=== PATIENT | female | born 1985 | race Caucasian/White ===

== ENCOUNTER 2017-11-27 03:15 | Inpatient (IN) | payer OTHER ==
--- NOTE | 2017-11-27 04:04 | PDOC ---
History of Present Illness - General Chief Complaint: Back Pain Stated Complaint: PAIN Time Seen by Provider: 11/27/17 03:38 History Source: Patient Exam Limitations: No Limitations - History of Present Illness Travel History: No Initial Comments: 11/27/17 04:04 HISTORY OF PRESENT ILLNESS: 32-year-old woman with past medical history of asthma presents emergency Department with left lower quadrant pain radiating to the left flank for the past 36 hours. Patient states the pain came on suddenly and is been constant over this time. Patient states she took Tia-Acton with minimal relief of symptoms. Patient reports having a strange sensation when she voids. Patient also with intermittent nausea. Patient denies any constipation, diarrhea, rectal bleeding, vaginal discharge, vaginal bleeding, vomiting, dyspareunia. Patient states she had a formed brown bowel movement approximately 8:00 this evening. Patient reports last month she took plan B and lower cramping and vaginal bleeding afterwards. No recent travel or sick contacts. PAST MEDICAL HISTORY: asthma SURGICAL HISTORY: Denies ALLERGIES: No known drug allergies REVIEW OF SYSTEMS General/Constitutional: Denies fever or chills. Denies weakness, weight change. HEENT: Denies change in vision. Denies ear pain or discharge. Denies sore throat. Cardiovascular: Denies chest pain or shortness of breath. Respiratory: Denies cough, wheezing, or hemoptysis. Gastrointestinal: Denies vomiting, diarrhea or constipation. Denies rectal bleeding. +nausea. Genitourinary: +dysuria. Denies frequency, or change in urination. Musculoskeletal: Denies joint or muscle swelling or pain. Denies neck or back pain. Skin and breasts: Denies rash or easy bruising. Neurologic: Denies headache, vertigo, loss of consciousness, or loss of sensation. Psychiatric: Denies depression or anxiety. Endocrine: Denies increased thirst. Denies abnormal weight change. Hematologic/Lymphatic: Denies anemia, easy bleeding, or history of blood clots. Allergic/Immunologic: Denies hives or skin allergy. Denies latex allergy. PHYSICAL EXAM General Appearance: Well-appearing, appropriately dressed. No apparent distress , no intoxication. HEENT: EOMI, PERRLA, normal ENT inspection, normal voice, TMs normal, pharynx normal. No conjunctival pallor. No photophobia, scleral icterus. Neck: Supple. Trachea midline. No tenderness, rigidity, carotid bruit, stridor , lymphadenopathy, or thyromegaly. Respiratory/Chest: Lungs CTAB. No shortness of breath, chest tenderness, respiratory distress, accessory muscle use. No crackles, rales, rhonchi, stridor , wheezing, dullness Cardiovascular: RRR. S1, S2. No JVD, murmur, bradycardia, tachycardia. Vascular Pulses: Dorsalis-Pedis (R): 2+, Dorsalis-Pedis (L): 2+ Gastrointestinal/Abdominal: Normal bowel sounds. Abdomen soft, non-distended. LLQ tenderness. No rebound tenderness. No organomegaly, pulsatile mass, guarding , hernia, hepatomegaly, splenomegaly. Lymphatic: No adenopathy, tenderness. Musculoskeletal/Extremities: Normal inspection. FROM of all extremities, normal capillary refill. Pelvis Stable. Left CVA tenderness. No tenderness to extremities, pedal edema, swelling, erythema or deformity. Integumentary: Appropriate color, dry, warm. No cyanosis, erythema, jaundice or rash Neurologic: electrical sign wirer helper II-XII intact. Fully oriented, alert. Appropriate mood/affect. Motor strength 5/5. No appreciable EOM palsy, facial droop or sensory deficit. Past History - Past Medical History Allergies/Adverse Reactions: Allergies Allergy/AdvReac Type Severity Reaction Status Date / Time No Known Allergies Allergy Verified 11/27/17 03:49 Home Medications: Ambulatory Orders No Home Medications 0 dose .ROUTE UTDICT 12/28/11 Asthma: Yes - Surgical History Appendectomy: Yes - Reproductive History (#): 3 Para: 3 - Immunization History Immunization Up to Date: Yes - Suicide/Smoking/Psychosocial Hx Smoking Status: No Smoking History: Former smoker Have you smoked in the past 12 months: No Number of Cigarettes Smoked Daily: 0 Information on smoking cessation initiated: No Hx Alcohol Use: No Drug/Substance Use Hx: No Substance Use Type: None *Physical Exam - Vital Signs Last Vital Signs Temp Pulse Resp BP Pulse Ox 98.3 F 80 20 139/84 98 11/27/17 03:20 11/27/17 03:20 11/27/17 03:20 11/27/17 03:20 11/27/17 03:20 ED Treatment Course - LABORATORY CBC & Chemistry Diagram: 11/27/17 04:15 11/27/17 04:15 Medical Decision Making - Medical Decision Making 11/27/17 04:16 A/P: 32-year-old woman with recent hours of left lower quadrant pain radiating to the left flank Normoactive bowel sounds Left lower quadrant tenderness No guarding present Left CVA tenderness present Labs, urine, Zofran, analgesia after urine is resulted. Spiral CT *DC/Admit/Observation/Transfer Diagnosis at time of Disposition: Kidney stone, Obstruction of left ureteropelvic junction (UPJ) due to stone, Hydronephrosis of left kidney - Discharge Dispostion Condition at time of disposition: Guarded - Referrals - Patient Instructions - Post Discharge Activity
[2017-11-27] MEDS ORDERED: ONDANSETRON 4 MG/2 ML VIAL IVPUSH ONE (04:05)
[2017-11-27] MEDS ORDERED: SODIUM CHLORIDE 1,000 ML IV STA (04:05)
[2017-11-27 04:37] LABS: BASO % 0.5 % (0-2.0); EOS % 1.7 % (0-4.5); HEMATOCRIT 38.6 % (32.4-45.2); MCH 29.5 pg (25.7-33.7); MCHC 33.8 g/dl (32.0-36.0); MEAN CELL VOLUME 87.4 fl (80-96); MEAN PLT VOLUME 9.6 fl (7.5-11.1); MONO % 5.5 % (3.8-10.2); NEUT % 77.3 % (42.8-82.8); PLATELET COUNT 234 K/MM3 (134-434); RBC 4.42 M/mm3 (3.60-5.2); RDW 12.9 % (11.6-15.6); WHITE BLOOD COUNT 9.2 K/mm3 (4.0-10.0)
[2017-11-27 04:47] LABS: URINE APPEARANCE CLEAR; URINE BILIRUBIN NEGATIVE (<2.0 mg/dL); URINE COLOR STRAW; URINE GLUCOSE (UA) NEGATIVE (NEGATIVE); URINE KETONE NEGATIVE (NEGATIVE); URINE LEUK ESTERASE NEGATIVE (NEGATIVE); URINE NITRITE NEGATIVE (NEGATIVE); URINE PROTEIN NEGATIVE (NEGATIVE); URINE UROBILINOGEN NEGATIVE mg/dL (0.2-1.0)
[2017-11-27 04:50] LABS: EPI CELLS RARE /HPF (FEW); URINE MUCUS RARE
[2017-11-27 05:00] LABS: ALBUMIN 4.1 g/dl (3.4-5.0); ALK PHOS 91 U/L (45-117); ANION GAP 3 MMOL/L (8-16); BILIRUBIN,TOTAL 1.1 mg/dL (0.2-1); BLOOD UREA NITROGEN 18 mg/dL (7-18); CALCIUM 8.9 mg/dL (8.5-10.1); CHLORIDE 107 mmol/L (98-107); CO2 27 mmol/L (21-32); GLUCOSE,RANDOM 94 mg/dL (74-106); POTASSIUM 3.9 mmol/L (3.5-5.1); SGOT/AST 14 U/L (15-37); SGPT/ALT 23 U/L (13-61); SODIUM 136 mmol/L (136-145); TOT PROT 7.7 g/dl (6.4-8.2)
[2017-11-27] MEDS ORDERED: KETOROLAC TROMETHAMINE 30 MG/1 ML VIAL IVPUSH ONE (05:10)
[2017-11-27] MEDS ORDERED: KETOROLAC TROMETHAMINE 30 MG/1 ML VIAL ONE (05:11)
[2017-11-27] MEDS ORDERED: ONDANSETRON 4 MG/2 ML VIAL ONE (05:11)
--- NOTE | 2017-11-27 10:47 | PDOC ---
ED Treatment Course - LABORATORY CBC & Chemistry Diagram: 11/27/17 04:15 11/27/17 04:15 - ADDITIONAL ORDERS Additional order review: Laboratory Results 11/27/17 11/27/17 11/27/17 04:30 04:30 04:15 Sodium 136 Potassium 3.9 Chloride 107 Carbon Dioxide 27 Anion Gap 3 L BUN 18 Creatinine 1.0 Creat Clearance w eGFR > 60 Random Glucose 94 Calcium 8.9 Total Bilirubin 1.1 H AST 14 L ALT 23 Alkaline Phosphatase 91 Total Protein 7.7 Albumin 4.1 Urine Color Straw Urine Appearance Clear Urine pH 7.0 Ur Specific [place] 1.011 Urine Protein Negative Urine Glucose (UA) Negative Urine Ketones Negative Urine Blood 1+ H Urine Nitrite Negative Urine Bilirubin Negative Urine Urobilinogen Negative Ur Leukocyte Esterase Negative Urine WBC (Auto) 0-2 Urine RBC (Auto) Ur Epithelial Cells Rare Urine Mucus Rare Urine HCG, Qual Negative 11/27/17 04:15 RBC 4.42 MCV 87.4 MCHC 33.8 RDW 12.9 MPV 9.6 Neutrophils % 77.3 D Lymphocytes % 15.0 D Monocytes % 5.5 Eosinophils % 1.7 Basophils % 0.5 - Medications Given in the ED: ED Medications Discontinued Medications Generic Name Dose Route Start Last Admin Trade Name Freq PRN Reason Stop Dose Admin Sodium Chloride 1,000 mls @ 1,000 mls/hr 11/27/17 04:05 11/27/17 05:21 Normal Saline - IV 11/27/17 05:04 1,000 mls/hr ASDIR STA Administration Ketorolac Tromethamine 30 mg 11/27/17 05:10 11/27/17 05:22 Toradol Injection - IVPUSH 11/27/17 05:11 30 mg ONCE ONE Administration Ondansetron HCl 4 mg 11/27/17 04:05 11/27/17 05:22 Zofran Injection IVPUSH 11/27/17 04:06 4 mg ONCE ONE Administration <Ayah Cornell - Last Filed: 11/27/17 11:59> - LABORATORY CBC & Chemistry Diagram: 11/27/17 04:15 11/27/17 04:15 - ADDITIONAL ORDERS Additional order review: Laboratory Results 11/27/17 11/27/17 11/27/17 04:30 04:30 04:15 Sodium 136 Potassium 3.9 Chloride 107 Carbon Dioxide 27 Anion Gap 3 L BUN 18 Creatinine 1.0 Creat Clearance w eGFR > 60 Random Glucose 94 Calcium 8.9 Total Bilirubin 1.1 H AST 14 L ALT 23 Alkaline Phosphatase 91 Total Protein 7.7 Albumin 4.1 Urine Color Straw Urine Appearance Clear Urine pH 7.0 Ur Specific [place] 1.011 Urine Protein Negative Urine Glucose (UA) Negative Urine Ketones Negative Urine Blood 1+ H Urine Nitrite Negative Urine Bilirubin Negative Urine Urobilinogen Negative Ur Leukocyte Esterase Negative Urine WBC (Auto) 0-2 Urine RBC (Auto) Ur Epithelial Cells Rare Urine Mucus Rare Urine HCG, Qual Negative 11/27/17 04:15 RBC 4.42 MCV 87.4 MCHC 33.8 RDW 12.9 MPV 9.6 Neutrophils % 77.3 D Lymphocytes % 15.0 D Monocytes % 5.5 Eosinophils % 1.7 Basophils % 0.5 - Medications Given in the ED: ED Medications Discontinued Medications Generic Name Dose Route Start Last Admin Trade Name Freq PRN Reason Stop Dose Admin Sodium Chloride 1,000 mls @ 1,000 mls/hr 11/27/17 04:05 11/27/17 05:21 Normal Saline - IV 11/27/17 05:04 1,000 mls/hr ASDIR STA Administration Ketorolac Tromethamine 30 mg 11/27/17 05:10 11/27/17 05:22 Toradol Injection - IVPUSH 11/27/17 05:11 30 mg ONCE ONE Administration Ondansetron HCl 4 mg 11/27/17 04:05 11/27/17 05:22 Zofran Injection IVPUSH 11/27/17 04:06 4 mg ONCE ONE Administration Oxycodone/Acetaminophen 2 combo 11/27/17 11:24 11/27/17 11:26 Percocet 5/325 - PO 11/27/17 11:25 2 combo ONCE ONE Administration <Lynne Persaud - Last Filed: 11/27/17 12:04> Progress Note - Progress Note Progress Note: Patient will be discharged on FLomax, motrin, percocet, zofran PRN for nausea. Pt in NAD, tolerating PO 12:00p Pt is now in a lot of pain, percocet given, she is still in pain, will consider admission. Dr. Persaud spoke to hospitalist. Will page Dr. Perez to keep him updated <Ayah Cornell - Last Filed: 11/27/17 11:59> Medical Decision Making - Medical Decision Making 11/27/17 12:04 The patient was seen and evaluated in conjunction with midlevel provider under my direct supervision, ancillary studies were reviewed. I agree with the plan as outlined by CHUY Cornell. see attending note <Lynne Persaud - Last Filed: 11/27/17 12:04> *DC/Admit/Observation/Transfer <Ayah Cornell - Last Filed: 11/27/17 11:59> - Discharge Dispostion Decision to Admit order: Yes Decision to Admit order Date/Time: Decision to Admit Order Category Date Time Status Decision to Admit to Hospital Routine Admission 11/27/17 11:38 Active <Lynne Persaud - Last Filed: 11/27/17 12:04> Diagnosis at time of Disposition: Kidney stone, Obstruction of left ureteropelvic junction (UPJ) due to stone, Hydronephrosis of left kidney - Discharge Dispostion Condition at time of disposition: Guarded - Referrals Referrals: Silviano Duarte MD [Staff Physician] - Juanito Mcneal MD [Staff Physician] - - Patient Instructions
--- NOTE | 2017-11-27 11:27 | PDOC ---
*Physical Exam - Vital Signs Last Vital Signs Temp Pulse Resp BP Pulse Ox 98.3 F 70 16 148/57 L 97 11/27/17 10:54 11/27/17 10:54 11/27/17 10:54 11/27/17 10:54 11/27/17 10:54 ED Treatment Course - LABORATORY CBC & Chemistry Diagram: 11/27/17 04:15 11/27/17 04:15 - ADDITIONAL ORDERS Additional order review: Laboratory Results 11/27/17 11/27/17 11/27/17 04:30 04:30 04:15 Sodium 136 Potassium 3.9 Chloride 107 Carbon Dioxide 27 Anion Gap 3 L BUN 18 Creatinine 1.0 Creat Clearance w eGFR > 60 Random Glucose 94 Calcium 8.9 Total Bilirubin 1.1 H AST 14 L ALT 23 Alkaline Phosphatase 91 Total Protein 7.7 Albumin 4.1 Urine Color Straw Urine Appearance Clear Urine pH 7.0 Ur Specific [place] 1.011 Urine Protein Negative Urine Glucose (UA) Negative Urine Ketones Negative Urine Blood 1+ H Urine Nitrite Negative Urine Bilirubin Negative Urine Urobilinogen Negative Ur Leukocyte Esterase Negative Urine WBC (Auto) 0-2 Urine RBC (Auto) Ur Epithelial Cells Rare Urine Mucus Rare Urine HCG, Qual Negative 11/27/17 04:15 RBC 4.42 MCV 87.4 MCHC 33.8 RDW 12.9 MPV 9.6 Neutrophils % 77.3 D Lymphocytes % 15.0 D Monocytes % 5.5 Eosinophils % 1.7 Basophils % 0.5 - Medications Given in the ED: ED Medications Discontinued Medications Generic Name Dose Route Start Last Admin Trade Name Freq PRN Reason Stop Dose Admin Sodium Chloride 1,000 mls @ 1,000 mls/hr 11/27/17 04:05 11/27/17 05:21 Normal Saline - IV 11/27/17 05:04 1,000 mls/hr ASDIR STA Administration Ketorolac Tromethamine 30 mg 11/27/17 05:10 11/27/17 05:22 Toradol Injection - IVPUSH 11/27/17 05:11 30 mg ONCE ONE Administration Ondansetron HCl 4 mg 11/27/17 04:05 11/27/17 05:22 Zofran Injection IVPUSH 11/27/17 04:06 4 mg ONCE ONE Administration Medical Decision Making - Medical Decision Making 11/27/17 11:25 The patient was seen and evaluated in conjunction with midlevel provider under my direct supervision, ancillary studies were reviewed. I agree with the plan as outlined by CHUY Cornell was signed out from Dr. Washington/CHUY Burgos overnight pending CT isak 32 YOF with h/o asthma p/w LLQ pain radiating to left flank x 3 days. no fever or vomiting. +nausea. no urinary sx. vitals reviewed, wnl. no fever labs and lytes wnl, Cr and UA normal, no infection. +blood present, c/w stone passing. CT [place] with obstruction distal UPJ stone measuring ~8mm, with associated hydro. pain initially controlled with nsaid. given IVF however on reassessment 1120am: still in 10/10 pain, given trial of PO percocet , and reassess. on reassessment 12pm: still in pain despite PO percocet, tender in left flank. + symptomatic, additional analgesia w/Toradol, morphine and IVF, PO flomax for large stone not candidate to go home, intractable pain with obstructing large UPJ stone that has <50% of passing. pt does feel more comfortable with observation stay, updated with results and plan. CHUY called consulted Dr. Flanagan, trust operations assistant urologist, discussed case, will reupdate with admission, as pt not candidate to go home with intractable pain and large prox stone. dispo: Admit for obstructing UPJ stone, pain control, urology consultation and medical management for now. Discussed results and management plan with pt and family member at bedside, agree with impression and plan 11/27/17 11:52 *DC/Admit/Observation/Transfer Diagnosis at time of Disposition: Kidney stone, Obstruction of left ureteropelvic junction (UPJ) due to stone, Hydronephrosis of left kidney - Discharge Dispostion Condition at time of disposition: Guarded Decision to Admit order: Yes Decision to Admit order Date/Time: 11/27/17 11:58 Decision to Admit Order Category Date Time Status Decision to Admit to Hospital Routine Admission 11/27/17 11:38 Active - Referrals Referrals: Juanito Mcneal MD [Staff Physician] - Silviano Duarte MD [Staff Physician] - - Patient Instructions - Post Discharge Activity
[2017-11-27] MEDS ORDERED: morphine CARPU-JECT 4 MG/1 ML DISP.SYRIN IVPUSH ONE (11:50)
[2017-11-27] MEDS ORDERED: KETOROLAC TROMETHAMINE 15 MG/ML VIAL IVPUSH ONE (11:50)
[2017-11-27] MEDS ORDERED: SODIUM CHLORIDE 0.9% 500 ML INFUS.BAG IV ONE (11:51)
[2017-11-27] MEDS ORDERED: TAMSULOSIN HCL 0.4 MG CAP PO ONE (11:58)
--- NOTE | 2017-11-27 12:05 | PDOC ---
ED Treatment Course - LABORATORY CBC & Chemistry Diagram: 11/27/17 04:15 11/27/17 04:15 - ADDITIONAL ORDERS Additional order review: Laboratory Results 11/27/17 11/27/17 11/27/17 04:30 04:30 04:15 Sodium 136 Potassium 3.9 Chloride 107 Carbon Dioxide 27 Anion Gap 3 L BUN 18 Creatinine 1.0 Creat Clearance w eGFR > 60 Random Glucose 94 Calcium 8.9 Total Bilirubin 1.1 H AST 14 L ALT 23 Alkaline Phosphatase 91 Total Protein 7.7 Albumin 4.1 Urine Color Straw Urine Appearance Clear Urine pH 7.0 Ur Specific [place] 1.011 Urine Protein Negative Urine Glucose (UA) Negative Urine Ketones Negative Urine Blood 1+ H Urine Nitrite Negative Urine Bilirubin Negative Urine Urobilinogen Negative Ur Leukocyte Esterase Negative Urine WBC (Auto) 0-2 Urine RBC (Auto) Ur Epithelial Cells Rare Urine Mucus Rare Urine HCG, Qual Negative 11/27/17 04:15 RBC 4.42 MCV 87.4 MCHC 33.8 RDW 12.9 MPV 9.6 Neutrophils % 77.3 D Lymphocytes % 15.0 D Monocytes % 5.5 Eosinophils % 1.7 Basophils % 0.5 - Medications Given in the ED: ED Medications Discontinued Medications Generic Name Dose Route Start Last Admin Trade Name Freq PRN Reason Stop Dose Admin Sodium Chloride 1,000 mls @ 1,000 mls/hr 11/27/17 04:05 11/27/17 05:21 Normal Saline - IV 11/27/17 05:04 1,000 mls/hr ASDIR STA Administration Ketorolac Tromethamine 30 mg 11/27/17 05:10 11/27/17 05:22 Toradol Injection - IVPUSH 11/27/17 05:11 30 mg ONCE ONE Administration Ondansetron HCl 4 mg 11/27/17 04:05 11/27/17 05:22 Zofran Injection IVPUSH 11/27/17 04:06 4 mg ONCE ONE Administration Oxycodone/Acetaminophen 2 combo 11/27/17 11:24 11/27/17 11:26 Percocet 5/325 - PO 11/27/17 11:25 2 combo ONCE ONE Administration *DC/Admit/Observation/Transfer Diagnosis at time of Disposition: Kidney stone, Obstruction of left ureteropelvic junction (UPJ) due to stone, Hydronephrosis of left kidney - Discharge Dispostion Condition at time of disposition: Guarded Decision to Admit order: Yes - Referrals Referrals: Juanito Mcneal MD [Staff Physician] - Silviano Duarte MD [Staff Physician] - - Patient Instructions - Post Discharge Activity
[2017-11-27] MEDS ORDERED: KETOROLAC TROMETHAMINE 15 MG/ML VIAL ONE (12:19)
[2017-11-27] MEDS ORDERED: TAMSULOSIN HCL 0.4 MG CAP ONE (12:19)
[2017-11-27] MEDS ORDERED: morphine SULFATE 4 MG/ML VIAL ONE (12:19)
[2017-11-27] MEDS ORDERED: ONDANSETRON 4 MG/2 ML VIAL IVPUSH PRN (13:09)
--- NOTE | 2017-11-27 13:09 | HP ---
CHIEF COMPLAINT: LLQ and left CVA pain PCP: NONE HISTORY OF PRESENT ILLNESS: 32 yr old woman with hx of controlled asthma presented to ED early this morning with intractable llq and left CVA pain radiating between her left lower abdomen and left CVA, 10/10 intensity, intermittent, worse when drinking water and leaning forward. pain initially started in her llq on Wednesday and was intermittent, continued to increaese in frequency with worsening intensity starting Wednesday. this morning the pain was worse than ever associated with hematuria and chills. denies previous hx of nephrolithiasis. took plan B on nov 11 and was on her menses until wednesday. ER course was notable for: (1) pain control (2) consult Dr. Orozco (3) Recent Travel: none PAST MEDICAL HISTORY: hx of pyelonephritis 1 episode during her in 2004 asthma, controlled - no hx of intubations/ED visits/hospitalizations PAST SURGICAL HISTORY: x3 2004, 2005 and 2007 appendectomy >10yrs ago Social History: Smoking:never Alcohol:socially Drugs: denies Family History: father with hx of CT at age 55 and HTN, maternal grandmother wth DM. no family hx of renal stones. Allergies No Known Allergies Allergy (Verified 11/27/17 03:49) HOME MEDICATIONS: Home Medications Medication Instructions Recorded No Home Medications 0 dose .ROUTE UTDICT 12/28/11 REVIEW OF SYSTEMS CONSTITUTIONAL: Present: chills, Absent: fever, diaphoresis, generalized weakness, malaise, loss of appetite, weight change HEENT: Present: intermittent blurry vision with pain Absent: rhinorrhea, nasal congestion, throat pain, throat swelling, difficulty swallowing, mouth swelling, CARDIOVASCULAR: Absent: chest pain, syncope, palpitations, irregular heart rate, lightheadedness , peripheral edema RESPIRATORY: Absent: cough, shortness of breath, dyspnea with exertion, GASTROINTESTINAL: Present: abdominal pain, constipation, Absent:abdominal distension, nausea, vomiting, diarrhea, melena, hematochezia GENITOURINARY: Present: dysuria, hematuria, flank pain, Absent: frequency, urgency, hesitancy, genital pain MUSCULOSKELETAL: Absent: myalgia, arthralgia, joint swelling, back pain, neck pain NEUROLOGIC: Absent: headache, dizziness, unsteady gait, seizure, PHYSICAL EXAMINATION Vital Signs - 24 hr 11/27/17 11/27/1711/27/18 03:20 05:14 07:04 Temperature 98.3 F Pulse Rate 80 Pulse Rate [ 75 Left Radial] Respiratory 20 16 Rate Blood Pressure 139/84 Blood Pressure 154/94 [Left Arm] O2 Sat by Pulse 98 98 94 L Oximetry (%) 11/27/17 11/27/17 11/27/17 10:54 11:40 12:11 Temperature 98.3 F 98.3 F Pulse Rate Pulse Rate [ 70 78 Left Radial] Respiratory 16 16 16 Rate Blood Pressure Blood Pressure 148/57 L 158/96 [Left Arm] O2 Sat by Pulse 97 100 100 Oximetry (%) GENERAL: Awake, alert, in no acute distress. HEAD: Normal with no signs of trauma. EYES: Pupils equal, round and reactive to light, extraocular movements intact, sclera anicteric, conjunctiva clear. No lid lag. EARS, NOSE, THROAT: oropharynx clear without exudates. Moist mucous membranes. NECK: Normal range of motion, supple without lymphadenopathy, JVD, or masses. LUNGS: Breath sounds equal, clear to auscultation bilaterally. No wheezes, and no crackles. No accessory muscle use. HEART: Regular rate and rhythm, normal S1 and S2 without murmur, rub or gallop. ABDOMEN:obses, Soft, nontender, not distended, normoactive bowel sounds, no guarding, no rebound, no masses. MUSCULOSKELETAL: Normal range of motion at all joints. No bony deformities or tenderness. No CVA tenderness. UPPER EXTREMITIES: 2+ radial pulses, warm, well-perfused. No cyanosis. No clubbing. No peripheral edema. LOWER EXTREMITIES: 2+ DP pulses, warm, well-perfused. No calf tenderness. No peripheral edema. NEUROLOGICAL: Cranial nerves II-XII intact. Normal speech. facial symmetry PSYCHIATRIC: Cooperative. Good eye contact. Appropriate mood and affect. SKIN: Warm, dry, normal turgor, no rashes or lesions noted, normal capillary refill. Laboratory Results - last 24 hr 11/27/17 11/27/17 11/27/17 04:15 04:15 04:30 WBC 9.2 RBC 4.42 Hgb 13.0 Hct 38.6 MCV 87.4 MCH 29.5 MCHC 33.8 RDW 12.9 Plt Count 234 MPV 9.6 Absolute Neuts (auto) 7.1 Neutrophils % 77.3 D Lymphocytes % 15.0 D Monocytes % 5.5 Eosinophils % 1.7 Basophils % 0.5 Nucleated RBC % 0 Sodium 136 Potassium 3.9 Chloride 107 Carbon Dioxide 27 Anion Gap 3 L BUN 18 Creatinine 1.0 Creat Clearance w eGFR > 60 Random Glucose 94 Calcium 8.9 Total Bilirubin 1.1 H AST 14 L ALT 23 Alkaline Phosphatase 91 Total Protein 7.7 Albumin 4.1 Urine Color Straw Urine Appearance Clear Urine pH 7.0 Ur Specific [place] 1.011 Urine Protein Negative Urine Glucose (UA) Negative Urine Ketones Negative Urine Blood 1+ H Urine Nitrite Negative Urine Bilirubin Negative Urine Urobilinogen Negative Ur Leukocyte Esterase Negative Urine WBC (Auto) 0-2 Urine RBC (Auto) Ur Epithelial Cells Rare Urine Mucus Rare Urine HCG, Qual 11/27/17 04:30 WBC RBC Hgb Hct MCV MCH MCHC RDW Plt Count MPV Absolute Neuts (auto) Neutrophils % Lymphocytes % Monocytes % Eosinophils % Basophils % Nucleated RBC % Sodium Potassium Chloride Carbon Dioxide Anion Gap BUN Creatinine Creat Clearance w eGFR Random Glucose Calcium Total Bilirubin AST ALT Alkaline Phosphatase Total Protein Albumin Urine Color Urine Appearance Urine pH Ur Specific [place] Urine Protein Urine Glucose (UA) Urine Ketones Urine Blood Urine Nitrite Urine Bilirubin Urine Urobilinogen Ur Leukocyte Esterase Urine WBC (Auto) Urine RBC (Auto) Ur Epithelial Cells Urine Mucus Urine HCG, Qual Negative ASSESSMENT/PLAN: 32 yr old woman with controlled asthma presented to ED with intractable left flank pain radiating to her left lower abdomen for past few days found to have obstructing left proximal ureter with mild left renal hydronephrosis. #Obstructing renal calculi in the proximal left UPJ with mild left hydronephrosis - urology consult Dr. Orozco for evaluation/stent placemen - IVF @ 125cc/hr of Ns - flomax 0.4mg daily - strain urine - NPO at midnight for any possible intervention in the morning - pain control with toradol, escalate if needed - urine culture pending #fatty liver w/ elevated bilirubin seen on CT scan - recommend outpatient follow -up with PCP/GI #Obesity, BMI 40.7 #DVT: lovenox 40sq #Diet: regular for dinner #Activity as tolerated # declined HIV testing, orally designated her as her HCP, full code Visit type - Emergency Visit Emergency Visit: Yes ED Registration Date: 11/27/17 Care time: The patient presented to the Emergency Department on the above date and was hospitalized for further evaluation of their emergent condition. - New Patient This patient is new to me today: Yes Date on this admission: 11/27/17 - Critical Care Critical Care patient: No
[2017-11-27] MEDS: SODIUM CHLORIDE 1,000 ML IV SCH ×2 (14:50→23:25)
--- NOTE | 2017-11-27 15:09 | PN ---
Teaching Attending Note Name of Resident: Kale Vaughn ATTENDING PHYSICIAN STATEMENT I saw and evaluated the patient. I reviewed the resident's note and discussed the case with the resident. I agree with the resident's findings and plan as documented. SUBJECTIVE: This is a 32 year old woman with a history of asthma who comes to the ED complaining of left flank and LLQ abdominal pain x 2 days. She has nausea , painful urination, but no fever, chills, vomiting, diarrhea, constipation, rectal bleeding, melena, hematuria. OBJECTIVE: Vital Signs Period Temp Pulse Resp BP Sys/Mojica Pulse Ox Last 24 Hr 98.3 F-98.3 F 70-80 16-20 139-158/57-96 94-100 HEART: S1S2, RRR LUNGS: Clear ABDOMEN: Obese, soft, non-distended, (+) LLQ tenderness, normal BS, (+) left CVA tenderness EXTREMITIES: No edema Laboratory Tests 11/27/17 11/27/17 11/27/17 04:15 04:15 04:30 WBC 9.2 RBC 4.42 Hgb 13.0 Hct 38.6 MCV 87.4 MCH 29.5 MCHC 33.8 RDW 12.9 Plt Count 234 MPV 9.6 Absolute Neuts (auto) 7.1 Neutrophils % 77.3 D Lymphocytes % 15.0 D Monocytes % 5.5 Eosinophils % 1.7 Basophils % 0.5 Nucleated RBC % 0 Sodium 136 Potassium 3.9 Chloride 107 Carbon Dioxide 27 Anion Gap 3 L BUN 18 Creatinine 1.0 Creat Clearance w eGFR > 60 Random Glucose 94 Calcium 8.9 Total Bilirubin 1.1 H AST 14 L ALT 23 Alkaline Phosphatase 91 Total Protein 7.7 Albumin 4.1 Urine Color Straw Urine Appearance Clear Urine pH 7.0 Ur Specific [place] 1.011 Urine Protein Negative Urine Glucose (UA) Negative Urine Ketones Negative Urine Blood 1+ H Urine Nitrite Negative Urine Bilirubin Negative Urine Urobilinogen Negative Ur Leukocyte Esterase Negative Urine WBC (Auto) 0-2 Urine RBC (Auto) Ur Epithelial Cells Rare Urine Mucus Rare Urine HCG, Qual 11/27/17 04:30 WBC RBC Hgb Hct MCV MCH MCHC RDW Plt Count MPV Absolute Neuts (auto) Neutrophils % Lymphocytes % Monocytes % Eosinophils % Basophils % Nucleated RBC % Sodium Potassium Chloride Carbon Dioxide Anion Gap BUN Creatinine Creat Clearance w eGFR Random Glucose Calcium Total Bilirubin AST ALT Alkaline Phosphatase Total Protein Albumin Urine Color Urine Appearance Urine pH Ur Specific [place] Urine Protein Urine Glucose (UA) Urine Ketones Urine Blood Urine Nitrite Urine Bilirubin Urine Urobilinogen Ur Leukocyte Esterase Urine WBC (Auto) Urine RBC (Auto) Ur Epithelial Cells Urine Mucus Urine HCG, Qual Negative Home Medications Medication Instructions Recorded No Home Medications 0 dose .ROUTE UTDICT 12/28/11 ASSESSMENT AND PLAN: This is a 32 year old woman with a history of asthma who presented to the ED with left flank pain, LLQ abdominal pain, nausea, and dysuria for 2 days. 1. Obstructing 7.5 mm left ureteral stone with mild left hydronephrosis - IV fluid - Flomax - Toradol as needed for pain - Zofran as needed for nause - Urology consult 2. Asthma - Stable 3. Morbid obesity with BMI 40.7
[2017-11-27] MEDS ORDERED: KETOROLAC TROMETHAMINE 15 MG/ML VIAL IVPUSH PRN (15:57)
[2017-11-27] MEDS ORDERED: ENOXAPARIN NA (PORCINE) 40 MG/0.4 ML DISP.SYRIN SQ SCH (18:00)
[2017-11-27] MEDS ORDERED: ENOXAPARIN NA (PORCINE) 60 MG/0.6 ML DISP.SYRIN SQ ONE (18:01)
[2017-11-28] MEDS ORDERED: TAMSULOSIN HCL 0.4 MG CAP PO ONE (06:00)
[2017-11-28] MEDS: SODIUM CHLORIDE 1,000 ML IV SCH ×3 (06:40→18:43)
[2017-11-28] MEDS ORDERED: MIDAZOLAM HCL 2 MG/2 ML SINGLE DOSE VIAL ONE (08:12)
[2017-11-28] MEDS ORDERED: LIDOCAINE HCL/PF 2% SDV 5ML VIAL ONE (08:13)
[2017-11-28] MEDS ORDERED: SODIUM CHLORIDE 0.9% P/F 10 ML VIAL IJ ONE (08:13)
[2017-11-28] MEDS ORDERED: LEVOFLOXACIN IVPB ONE (08:13)
[2017-11-28] MEDS ORDERED: METOPROLOL TARTRATE 5 MG/5 ML VIAL ONE (08:13)
[2017-11-28] MEDS ORDERED: PROPOFOL 20 ML ONE ×2 (08:14→09:25)
[2017-11-28] MEDS ORDERED: DEXAMETHASONE SOD PHOSPHATE 4 MG/1 ML VIAL ONE (08:15)
[2017-11-28] MEDS ORDERED: KETOROLAC TROMETHAMINE 30 MG/1 ML VIAL ONE (08:15)
[2017-11-28] MEDS ORDERED: SUCCINYLCHOLINE CHLORIDE 200 MG/10 ML VIAL ONE (08:17)
[2017-11-28] MEDS ORDERED: oxyCODONE HCL 5 MG TABLET PO PRN ×2 (08:34)
[2017-11-28] MEDS ORDERED: ONDANSETRON 4 MG/2 ML VIAL IVPUSH PRN ×3 (08:34→09:42)
[2017-11-28] MEDS ORDERED: LACTATED RINGERS SOLUTION 1,000 ML IV SCH ×2 (08:45→09:42)
--- NOTE | 2017-11-28 09:17 | CON.GU ---
Consult - History of Present Illness History of Present Illness: 32 yo female with acute onset of left renal colic secondary to an 8mm LPU stone. No fever/chills. No prior h/o nephrolithiaisis. Pt does have a h/o pyelonephritis - Past Medical History ...LMP: 06/26/13 ...: No - Alcohol/Substance Use Hx Alcohol Use: No - Smoking History Smoking history: Former smoker Have you smoked in the past 12 months: No Aproximately how many cigarettes per day: 0 Home Medications - Allergies Allergies/Adverse Reactions: Allergies Allergy/AdvReac Type Severity Reaction Status Date / Time No Known Allergies Allergy Verified 11/27/17 03:49 - Home Medications Home Medications: Ambulatory Orders No Home Medications 0 dose .ROUTE UTDICT 12/28/11 Review of Systems - Review of Systems Genitourinary: reports: Flank Pain Physical Exam- Vital Signs: Vital Signs Temperature 98.3 F 11/28/17 05:47 Pulse Rate 77 11/28/17 05:47 Respiratory Rate 18 11/28/17 05:47 Blood Pressure 140/78 11/28/17 05:47 O2 Sat by Pulse Oximetry (%) 99 11/28/17 00:00 Renal/: Yes: CVA Tenderness - Left Labs: CBC, BMP 11/27/17 04:15 11/27/17 04:15 Imaging - Results Cat Scan: Image Reviewed Problem List - Problems (1) Obstruction of left ureteropelvic junction (UPJ) due to stone Assessment/Plan: in light of large stone size, will plan for cysto/left stent placement today. Will need lithotripsy electively Code(s): N20.1 - CALCULUS OF URETER
--- NOTE | 2017-11-28 09:41 | OP ---
Operative Note - Note: Operative Date: 11/28/17 Pre-Operative Diagnosis: LPU stone Operation: cyato/retro/stent placement Post-Operative Diagnosis: Same as Pre-op Surgeon: Silviano Duarte Anesthesia: General Estimated Blood Loss (mls): 0 Operative Report Dictated: Yes
[2017-11-28] MEDS: ENOXAPARIN NA (PORCINE) 40 MG/0.4 ML DISP.SYRIN SQ SCH (12:16)
[2017-11-28] MEDS: oxyCODONE HCL 5 MG TABLET PO PRN ×3 (12:16→22:52)
--- NOTE | 2017-11-28 12:48 | OP ---
DATE OF OPERATION: 11/28/2017 PREOPERATIVE DIAGNOSIS: Obstructing left proximal ureteral stone. POSTOPERATIVE DIAGNOSIS: Obstructing left proximal ureteral stone. PROCEDURE: Cystoscopy, retrograde pyelogram, left ureteral stent placement. SURGEON: Romeo Zuleta MD INDICATION: The patient is a 32-year-old female with an obstructing 8-mm left proximal ureteral stone. She is taken to the OR for a cystoscopy, ureteral stent placement. Risks, benefits, alternatives discussed. After informed consent was obtained, the patient was taken to the OR and placed supine on the OR table. After cardiac monitoring was administered and general anesthesia established, she was prepped and draped in dorsal lithotomy position. The rigid cystoscope was inserted into the urethra without difficulty and the bladder was visualized. Attention was turned to the left ureteral orifice. This was intubated with a renal catheter, contrast was injected for retrograde pyelogram with hydronephrosis noted to the level of the proximal ureter, just past the UPJ, where the stone was seen. A guidewire was advanced beyond the stone and, over a guidewire, a 7-Slovak 24-cm double-pigtail stent was then advanced in a monorail fashion. Fluoroscopy confirmed the stent to be in good position and the cystoscope was then removed. The patient was then awoken from anesthesia and transferred to the recovery room in stable condition. There were no complications. ESTIMATED BLOOD LOSS: Zero. ROMEO ZULETA M.D. [id number]
--- NOTE | 2017-11-28 13:13 | PN ---
Physical Exam: SUBJECTIVE: Patient seen and examined. She is still having left flank and abdominal pain but it is less severe. OBJECTIVE: Vital Signs Period Temp Pulse Resp BP Sys/Mojica Pulse Ox Last 24 Hr 98 F-98.9 F 73-99 16-20 125-154/78-89 97-100 GENERAL: The patient is awake, alert, and fully oriented, in no acute distress. LUNGS: Breath sounds equal, clear to auscultation bilaterally, no wheezes, no crackles, no accessory muscle use. HEART: Regular rate and rhythm, S1, S2 without murmur, rub or gallop. ABDOMEN: Obese, soft, (+) mild LLQ tenderness, nondistended, normoactive bowel sounds, no guarding, no rebound, no hepatosplenomegaly, no masses. EXTREMITIES: 2+ pulses, warm, well-perfused, no edema. Active Medications Generic Name Dose Route Start Last Admin Trade Name Freq PRN Reason Stop Dose Admin Enoxaparin Sodium 40 mg 11/28/17 10:00 11/28/17 12:16 Lovenox - SQ 40 mg DAILY TALON Administration Sodium Chloride 1,000 mls @ 125 mls/hr 11/28/17 09:42 11/28/17 10:45 Normal Saline - IV 0 mls ASDIR TALON Administration Ketorolac Tromethamine 15 mg 11/28/17 09:42 Toradol Injection - IVPUSH 12/02/17 15:56 Q6H PRN PAIN LEVEL 6-10 Ondansetron HCl 4 mg 11/28/17 09:42 Zofran Injection IVPUSH Q6H PRN NAUSEA Oxycodone HCl 5 mg 11/28/17 09:42 Roxicodone - PO Q4H PRN PAIN LEVEL 1-5 Oxycodone HCl 10 mg 11/28/17 09:42 11/28/17 12:16 Roxicodone - PO 10 mg Q4H PRN Administration PAIN LEVEL 6-10 ASSESSMENT/PLAN: This is a 32 year old woman with a history of asthma who presented to the ED with left flank pain, LLQ abdominal pain, nausea, and dysuria for 2 days. 1. Obstructing 7.5 mm left ureteral stone with mild left hydronephrosis - s/p cystoscopy, retrograde pyelogram, left ureteral stent placement today - Continue IV fluid, pain control 2. Asthma - Stable 3. Morbid obesity with BMI 45.9 Visit type - Emergency Visit Emergency Visit: Yes ED Registration Date: 11/27/17 Care time: The patient presented to the Emergency Department on the above date and was hospitalized for further evaluation of their emergent condition. - New Patient This patient is new to me today: No - Critical Care Critical Care patient: No - Discharge Referral Referred to [facility] No
[2017-11-28] MEDS: KETOROLAC TROMETHAMINE 15 MG/ML VIAL IVPUSH PRN (18:47)
[2017-11-29] MEDS: SODIUM CHLORIDE 1,000 ML IV SCH ×3 (01:59→12:10)
[2017-11-29] MEDS: oxyCODONE HCL 5 MG TABLET PO PRN ×2 (06:04→10:26)
[2017-11-29] MEDS: KETOROLAC TROMETHAMINE 15 MG/ML VIAL IVPUSH PRN (13:02)
[2017-11-29] MEDS: ENOXAPARIN NA (PORCINE) 40 MG/0.4 ML DISP.SYRIN SQ SCH (13:04)
--- NOTE | 2017-11-29 13:20 | PN ---
Physical Exam: SUBJECTIVE: Patient seen and examined. She continues to complain of left abdominal/flank pain. OBJECTIVE: Vital Signs Period Temp Pulse Resp BP Sys/Mojica Pulse Ox Last 24 Hr 97.6 F-98.3 F 69-84 16-20 134-141/72-81 96 GENERAL: The patient is awake, alert, and fully oriented, in no acute distress. LUNGS: Breath sounds equal, clear to auscultation bilaterally, no wheezes, no crackles, no accessory muscle use. HEART: Regular rate and rhythm, S1, S2 without murmur, rub or gallop. ABDOMEN: Obese, soft, (+) mild LLQ tenderness, nondistended, normoactive bowel sounds, no guarding, no rebound, no hepatosplenomegaly, no masses. (-) CVA tenderness. EXTREMITIES: 2+ pulses, warm, well-perfused, no edema. Active Medications Generic Name Dose Route Start Last Admin Trade Name Freq PRN Reason Stop Dose Admin Enoxaparin Sodium 40 mg 11/28/17 10:00 11/29/17 13:04 Lovenox - SQ 40 mg DAILY TALON Administration Sodium Chloride 1,000 mls @ 125 mls/hr 11/28/17 09:42 11/29/17 12:10 Normal Saline - IV 125 mls/hr ASDIR TALON Administration Ketorolac Tromethamine 15 mg 11/28/17 09:42 11/29/17 13:02 Toradol Injection - IVPUSH 12/02/17 15:56 15 mg Q6H PRN Administration PAIN LEVEL 6-10 Ondansetron HCl 4 mg 11/28/17 09:42 Zofran Injection IVPUSH Q6H PRN NAUSEA Oxycodone HCl 5 mg 11/28/17 09:42 11/28/17 22:52 Roxicodone - PO 5 mg Q4H PRN Administration PAIN LEVEL 1-5 Oxycodone HCl 10 mg 11/28/17 09:42 11/29/17 10:26 Roxicodone - PO 10 mg Q4H PRN Administration PAIN LEVEL 6-10 ASSESSMENT/PLAN: This is a 32 year old woman with a history of asthma who presented to the ED with left flank pain, LLQ abdominal pain, nausea, and dysuria for 2 days. 1. Obstructing 7.5 mm left ureteral stone with mild left hydronephrosis - s/p cystoscopy, retrograde pyelogram, left ureteral stent placement 11/28 - Continue IV fluid, pain control - Urology follow up 2. Asthma - Stable 3. Morbid obesity with BMI 45.9 Visit type - Emergency Visit Emergency Visit: Yes ED Registration Date: 11/27/17 Care time: The patient presented to the Emergency Department on the above date and was hospitalized for further evaluation of their emergent condition. - New Patient This patient is new to me today: No - Critical Care Critical Care patient: No - Discharge Referral Referred to [facility] No
--- NOTE | 2017-11-29 13:21 | PN ---
Progress Note (short form) - Note Progress Note: Anesthesia post op note, POD#1. S/p Cysto, left retrograde pyelogram and left ureter stent. under GA. VSS. No apparent post anesthesia complications. Signed off.
[2017-11-30] MEDS: oxyCODONE HCL 5 MG TABLET PO PRN (05:03)
[2017-11-30] MEDS: ENOXAPARIN NA (PORCINE) 40 MG/0.4 ML DISP.SYRIN SQ SCH (09:31)
[2017-11-30 09:57] VITALS: BP 134/77; PULSE 73; TEMP 98.3
[2017-11-30] MEDS: SODIUM CHLORIDE 1,000 ML IV SCH (10:00)
[2017-11-30 12:11] VITALS: BMI 45.8
[2017-11-30] MEDS ORDERED: POLYETHYLENE GLYCOL 3350 119 GM BTL PO ONE (12:38)
--- NOTE | 2017-11-30 12:48 | DS ---
Physical Exam: SUBJECTIVE: Patient seen and examined OBJECTIVE: Vital Signs Period Temp Pulse Resp BP Sys/Mojica Pulse Ox Last 24 Hr 97.4 F-98.5 F 67-75 20-20 131-154/75-97 95 PHYSICAL EXAM GENERAL: The patient is awake, alert, and fully oriented, in no acute distress. HEAD: Normal with no signs of trauma. EYES: PERRL, extraocular movements intact, sclera anicteric, conjunctiva clear. ENT: Ears normal, nares patent, oropharynx clear without exudates, moist mucous membranes. NECK: Trachea midline, full range of motion, supple. LUNGS: Breath sounds equal, clear to auscultation bilaterally, no wheezes, no crackles, no accessory muscle use. HEART: Regular rate and rhythm, S1, S2 without murmur, rub or gallop. ABDOMEN: Soft, nontender, nondistended, normoactive bowel sounds, no guarding, no rebound, no hepatosplenomegaly, no masses. EXTREMITIES: 2+ pulses, warm, well-perfused, no edema. NEUROLOGICAL: Cranial nerves II through XII grossly intact. Normal speech, gait not observed. PSYCH: Normal mood, normal affect. SKIN: Warm, dry, normal turgor, no rashes or lesions noted. LABS HOSPITAL COURSE: Date of Admission:11/27/17 Date of Discharge: 11/30/17 Discharge Summary Reason For Visit: CALCULUS OF KIDNEY Current Active Problems Hydronephrosis of left kidney (Acute) Obstruction of left ureteropelvic junction (UPJ) due to stone (Acute) Asthma (Chronic) Morbid obesity with BMI of 45.0-49.9, adult (Chronic) Condition: Stable - Instructions Diet, Activity, Other Instructions: You were admitted to [facility] on 11/27 with left sided abdominal and flank pain. You were found to have a 7.5 mm stone obstructing the left ureter. You were treated with IV fluid, Flomax, and Toradol and oxycodone for pain. You were seen by a urologist, Dr. Duarte. On 11/28, you had a cystoscopy with left ureteral stent placement. You are being discharged on 11/30. Please continue to strain your urine. A prescription for oxycodone for pain has been sent to [facility]. While taking pain medications, you should take Colace (docusate) 300 mg at bedtime to prevent constipation, and you may take Miralax 17 g daily if needed for constipation. These are available over the counter. You may resume your usual diet and activity. You should schedule an appointment with Dr. Duarte and at the [facility] [place] [place] [facility] in 1 week. Referrals: Juanito Mcneal MD [Staff Physician] - 1 Week Silviano Duarte MD [Staff Physician] - 1 Week Disposition: HOME - Home Medications Comprehensive Discharge Medication List: Ambulatory Orders Docusate Sodium [Colace -] 3 cap PO HS #60 capsule 11/30/17 Polyethylene Glycol 3350 [Miralax (For Daily Use) -] 17 gm PO DAILY PRN #1 bottle 11/30/17 oxyCODONE HCL [Roxicodone -] 1 tab PO Q4H PRN #20 tablet MDD 6 tabs 11/30/17 - Discharge Referral Referred to [facility] No
== END 2017-11-30 14:14 | disposition home or self-care (01) | DRG 465 ==
LOC: JER 03:15 → JERBED 11:38 → OBSVTOIN 17:46 → J5S 20:53
PROVIDERS: ADMIT Internal Medicine; ATTEND Internal Medicine
PROC: 0T778DZ Dilation of Left Ureter with Intraluminal Device, Via Natural or Artificial Opening Endoscopic (ICD-10-PCS; principal; 2017-11-28 08:30)
PROC: BT1FZZZ Fluoroscopy of Left Kidney, Ureter and Bladder (ICD-10-PCS; 2017-11-28 08:30)
DX: N13.2 Hydronephrosis with renal and ureteral calculous obstruction (principal); J45.909 Unspecified asthma, uncomplicated; K76.0 Fatty (change of) liver, not elsewhere classified; E66.01 Morbid (severe) obesity due to excess calories; Z68.41 Body mass index [BMI] 40.0-44.9, adult; Z87.891 Personal history of nicotine dependence; R31.9 Hematuria, unspecified
CPT/HCPCS: 36415; 74176; 76000-TC-FY; 80053; 81003; 81015; 84703; 85025; 87086; 94760; 99285-25; G0378; J7030

== ENCOUNTER 2017-12-07 06:23 | Day surgery (SDC) | payer OTHER ==
[2017-12-06 10:16] VITALS: BMI 44.2
[2017-12-07] MEDS ORDERED: SUCCINYLCHOLINE CHLORIDE 200 MG/10 ML VIAL ONE (07:13)
[2017-12-07] MEDS ORDERED: MIDAZOLAM HCL 2 MG/2 ML SINGLE DOSE VIAL ONE (07:13)
[2017-12-07] MEDS ORDERED: PROPOFOL 20 ML ONE (07:13)
[2017-12-07] MEDS ORDERED: LIDOCAINE HCL/PF 2% SDV 5ML VIAL ONE (07:53)
[2017-12-07] MEDS ORDERED: IOHEXOL 300 MG/ML INFUS..BTL IJ ONE (08:05)
[2017-12-07] MEDS ORDERED: FUROSEMIDE 40 MG/4 ML INJECTABLE VIAL ONE (08:13)
[2017-12-07] MEDS ORDERED: DEXAMETHASONE SOD PHOSPHATE 4 MG/1 ML VIAL ONE (08:18)
[2017-12-07] MEDS ORDERED: oxyCODONE HCL 5 MG TABLET PO PRN ×2 (08:36→11:03)
--- NOTE | 2017-12-07 08:38 | OP ---
Operative Note - Note: Operative Date: 12/07/17 Pre-Operative Diagnosis: LPU stone Operation: laser litho/left ureteroscopy Findings: Left kid stone Surgeon: Silviano Duarte Anesthesia: General Specimens Removed: srtone fragisrael Estimated Blood Loss (mls): 0 Operative Report Dictated: Yes
[2017-12-07] MEDS ORDERED: ELECTROLYTE-148 SOLN 1,000 ML IV SCH (08:45)
--- NOTE | 2017-12-07 09:01 | OP ---
DATE OF OPERATION: 12/07/2017 PREOPERATIVE DIAGNOSIS: Left ureteropelvic junction stone. POSTOPERATIVE DIAGNOSIS: Left kidney stone. PROCEDURE: Cystoscopy, ureteroscopy, laser lithotripsy, stone basketing and stent placement. SURGEON: Romeo Zuleta MD INDICATION: Patient is a 32-year-old female status post left ureteral stent placement for an obstructing left UPJ stone approximately a week ago. Was taken to the OR today for ureteroscopy and laser lithotripsy. Risks, benefits and alternatives were discussed at length. After informed consent obtained patient taken to the OR, placed supine on the table. After cardiac monitoring administered and general anesthesia established she was prepped and draped in the dorsal supine position. The 22 sheath cystoscope was introduced into the urethra without difficulty and into the bladder. No tumors or stones were noted in the bladder. The left ureteral stent was seen emanating from the left ureteral orifice. A guidewire was advanced alongside this stent into the left renal pelvis. Then using a grasper the existing stent was removed and a guidewire was passed through the stent as a safety wire and confirmed with fluoroscopy to be in the left renal pelvis. Over 1 of the wires a flexible ureteroscope was advanced. The entire ureter was inspected and no stone was noted in the ureter. The kidney was then inspected and there was approximately a 6-mm stone in the lower pole of the left kidney corresponding to the stone that was present in the left proximal ureter preoperatively. The stone was pulverized to fine dust and 1- to 2-mm fragments with a 200-micron laser fiber. Two of these fragments were removed with the stone basket and sent to Pathology for analysis. Repeat ureteroscopy revealed no evidence of any other stone fragments. The ureteroscope was then removed and a 7-Liberian, 24-cm double-pigtail stent was then advanced in a monorail fashion. Fluoroscopy confirmed this to be in good position. Patient awoke from anesthesia and transferred to recovery in stable condition. There were no complications. Estimated blood loss was minimal. ROMEO ZULETA M.D. [id number]
[2017-12-07] MEDS ORDERED: ONDANSETRON 4 MG/2 ML VIAL IVPUSH PRN (11:03)
[2017-12-07 11:15] VITALS: BP 146/99; PULSE 84; TEMP 98.2
[2017-12-07] MEDS ORDERED: LACTATED RINGERS SOLUTION 1,000 ML IV SCH (11:15)
--- NOTE | 2017-12-08 14:53 | PATH ---
Surgical Pathology Report Patient Name: SUSAN MCINTYRE Med. Rec. #: [id number] /Age/Gender: 1985 (Age: 32) / F Account: [id number] Location: [facility] Taken: 12/07/2017 Received: 12/07/2017 Reported: 12/08/2017 Physicians: Silviano Duarte M.D. Specimen(s) Received A: REMOVED STENT LEFT SIDE B: LEFT KIDNEY CALCULI Clinical History Stone kidney left Final Diagnosis A. STENT, LEFT, REMOVAL: URETERAL STENT. MACROSCOPIC DIAGNOSIS. B. KIDNEY STONE, LASER LITHOTRIPSY: RENAL CALCULI. MACROSCOPIC DIAGNOSIS. Electronically Signed Tammi Caraballo M.D. Gross Description A. Received fresh labeled "removed stent left side," is a 36 cm in length blue-green, coiled portion of tubing, consistent with a ureteral stent. No soft tissue is present. No sections are submitted, gross only. B. Received fresh labeled "left kidney stone," is a 0.4 cm in greatest dimension mesa, irregular calculus which is sent for chemical analysis. DL/12/07/2017 saudi/12/07/2017
== END 2017-12-07 11:15 | disposition home or self-care (01) ==
LOC: JASU-SURG 06:23
PROVIDERS: ATTEND Urology
PROC: 0TF78ZZ Fragmentation in Left Ureter, Via Natural or Artificial Opening Endoscopic (ICD-10-PCS; principal; 2017-12-07 07:30)
PROC: 0T778DZ Dilation of Left Ureter with Intraluminal Device, Via Natural or Artificial Opening Endoscopic (ICD-10-PCS; 2017-12-07 07:30)
DX: N20.1 Calculus of ureter (principal)
CPT/HCPCS: 36415; 82360; 84703; 88300-TC; 94760

== ENCOUNTER 2021-09-18 13:55 | Emergency (ER) | payer OTHER ==
[2021-09-18 14:10] VITALS: BP 143/82; PULSE 83; RESP 18; TEMP 98.3; BMI 40.7
[2021-09-18] MEDS ORDERED: ACETAMINOPHEN 1000 MG/100 ML BAG IVPB ONE (16:20)
[2021-09-18] MEDS ORDERED: SODIUM CHLORIDE 1,000 ML IV STA (16:20)
[2021-09-18] MEDS ORDERED: ACETAMINOPHEN INJECTION 100 ML IVPB ONE (16:57)
[2021-09-18 17:58] LABS: BASO % 0.8 % (0-2.0); HEMATOCRIT 40.2 % (32.4-45.2); HEMOGLOBIN 13.4 GM/dL (10.7-15.3); LYMPH % 20.1 % (8-40); MCH 29.8 pg (25.7-33.7); MCHC 33.3 g/dl (32.0-36.0); MEAN CELL VOLUME 89.5 fl (80-96); MONO % 5.6 % (3.8-10.2); NEUT % 69.5 % (42.8-82.8); PLATELET COUNT 335 10^3/uL (134-434); RBC 4.49 M/mm3 (3.60-5.2); RDW 13.5 % (11.6-15.6); WHITE BLOOD COUNT 8.1 K/mm3 (4.0-10.0)
[2021-09-18 18:05] LABS: HCG,QUALITATIVE URINE Positive
[2021-09-18 18:06] LABS: EPI CELLS 16 /uL (0-25.1); HYALINE CASTS 1 /uL (0-3.1); PH,URINE 6.5 (5.0-8.0); URINE APPEARANCE CLEAR; URINE BACTERIA 48 /uL (0-1359); URINE BILIRUBIN NEGATIVE (NEGATIVE); URINE COLOR YELLOW; URINE GLUCOSE (UA) NEGATIVE (NEGATIVE); URINE KETONE TRACE (NEGATIVE); URINE LEUK ESTERASE NEGATIVE (NEGATIVE); URINE NITRITE NEGATIVE (NEGATIVE); URINE PROTEIN TRACE (NEGATIVE); URINE RBC 228 /uL (0-23.9); URINE WBC 7 /uL (0-25.8)
[2021-09-18 18:13] LABS: CHLORIDE 106 mmol/L (98-107); SODIUM 138 mmol/L (136-145)
[2021-09-18 18:15] LABS: ALBUMIN 3.7 g/dl (3.4-5.0); BLOOD UREA NITROGEN 15.8 mg/dL (7-18); CO2 25 mmol/L (21-32); GLUCOSE,RANDOM 83 mg/dL (74-106)
[2021-09-18 18:18] LABS: SGOT/AST 64 U/L (15-37); SGPT/ALT 28 U/L (13-61)
[2021-09-18 18:19] LABS: CREATININE 0.9 mg/dL (0.55-1.3)
[2021-09-18 18:20] LABS: BILIRUBIN,TOTAL 1.3 mg/dL (0.2-1)
[2021-09-18 18:21] LABS: ALK PHOS 88 U/L (45-117)
[2021-09-18 19:00] LABS: ANION GAP 7 MMOL/L (8-16)
[2021-09-18] MEDS ORDERED: SODIUM CHLORIDE 0.9% 500 ML INFUS.BAG IV ONE (19:59)
[2021-09-18] MEDS ORDERED: morphine CARPU-JECT 4 MG/1 ML DISP.SYRIN IVPUSH ONE (20:00)
[2021-09-18] MEDS ORDERED: morphine SULFATE 4 MG/ML VIAL ONE (20:04)
== END 2021-09-18 23:05 | disposition home or self-care (01) ==
LOC: JER 13:55
PROC: 3E033GC Introduction of Other Therapeutic Substance into Peripheral Vein, Percutaneous Approach (ICD-10-PCS; principal; 2021-09-18)
DX: O20.9 Hemorrhage in early pregnancy, unspecified (principal); Z3A.01 Less than 8 weeks gestation of pregnancy
CPT/HCPCS: 36415; 76775-TC; 76817-TC; 76856-TC; 80053; 81003; 84702; 84703; 85025; 87086; 93005; 93010; 99285-25

== ENCOUNTER 2022-01-18 18:54 | Emergency (ER) | payer OTHER ==
[2022-01-18 20:02] VITALS: BP 163/67; PULSE 80; RESP 18; TEMP 99.6; BMI 38.9
[2022-01-18] MEDS ORDERED: ACETAMINOPHEN 1000 MG/100 ML BAG IVPB ONE ×2 (20:53→21:07)
[2022-01-18] MEDS ORDERED: ACETAMINOPHEN INJECTION 100 ML IVPB ONE (21:09)
[2022-01-18 21:35] LABS: HEMATOCRIT 39.3 % (32.4-45.2); HEMOGLOBIN 12.9 GM/dL (10.7-15.3); MCH 29.2 pg (25.7-33.7); MCHC 32.7 g/dl (32.0-36.0); MEAN CELL VOLUME 89.2 fl (80-96); MEAN PLT VOLUME 9.9 fl (7.5-11.1); PLATELET COUNT 235 10^3/uL (134-434); RDW 13.9 % (11.6-15.6); WHITE BLOOD COUNT 8.3 K/mm3 (4.0-10.0)
[2022-01-18 21:36] LABS: URINE APPEARANCE CLOUDY; URINE BILIRUBIN NEGATIVE (NEGATIVE); URINE COLOR YELLOW; URINE GLUCOSE (UA) NEGATIVE (NEGATIVE); URINE KETONE NEGATIVE (NEGATIVE); URINE LEUK ESTERASE NEGATIVE (NEGATIVE); URINE NITRITE NEGATIVE (NEGATIVE); URINE PROTEIN TRACE (NEGATIVE); URINE UROBILINOGEN 0.2 mg/dL (0.2-1.0)
[2022-01-18 21:59] LABS: CALCIUM 9.1 mg/dL (8.5-10.1)
[2022-01-18 22:00] LABS: ALBUMIN 3.7 g/dl (3.4-5.0); BLOOD UREA NITROGEN 13.5 mg/dL (7-18)
[2022-01-18 22:02] LABS: CREATININE 0.8 mg/dL (0.55-1.3); PHOSPHOROUS 3.7 mg/dL (2.5-4.9)
[2022-01-18 22:04] LABS: BILIRUBIN,TOTAL 0.9 mg/dL (0.2-1); TOT PROT 7.1 g/dl (6.4-8.2)
[2022-01-19] MEDS ORDERED: KETOROLAC TROMETHAMINE 15 MG/ML VIAL IVPUSH ONE (00:37)
[2022-01-19] MEDS ORDERED: KETOROLAC TROMETHAMINE 15 MG/ML VIAL ONE (00:37)
== END 2022-01-19 00:46 | disposition home or self-care (01) ==
LOC: JER 18:54
PROC: 3E033NZ Introduction of Analgesics, Hypnotics, Sedatives into Peripheral Vein, Percutaneous Approach (ICD-10-PCS; principal; 2022-01-18)
PROC: 3E033GC Introduction of Other Therapeutic Substance into Peripheral Vein, Percutaneous Approach (ICD-10-PCS; 2022-01-18)
PROC: 3E0333Z Introduction of Anti-inflammatory into Peripheral Vein, Percutaneous Approach (ICD-10-PCS; 2022-01-19)
DX: R10.9 Unspecified abdominal pain (principal)
CPT/HCPCS: 36415; 76775-TC; 76830-TC; 80053; 81003; 83690; 83735; 84100; 84702; 84703; 85027; 87086; 93005; 93010; 99284-25

== ENCOUNTER 2022-04-17 07:12 | Emergency (ER) | payer OTHER ==
[2022-04-17 07:35] VITALS: BP 138/81; PULSE 94; RESP 18; TEMP 98.7; BMI 46.9
[2022-04-17] MEDS ORDERED: ACETAMINOPHEN 500 MG TABLET (FP) PO ONE (08:11)
[2022-04-17] MEDS ORDERED: ACETAMINOPHEN 500 MG TABLET (FP) ONE (08:12)
[2022-04-17 10:18] LABS: EPI CELLS >36 /uL (0-25.1); HYALINE CASTS 5 /uL (0-3.1); URINE APPEARANCE CLOUDY; URINE BACTERIA 385 /uL (0-1359); URINE BILIRUBIN NEGATIVE (NEGATIVE); URINE COLOR DK YELLOW; URINE GLUCOSE (UA) NEGATIVE (NEGATIVE); URINE KETONE TRACE (NEGATIVE); URINE LEUK ESTERASE 1+ (NEGATIVE); URINE NITRITE NEGATIVE (NEGATIVE); URINE PROTEIN 1+ (NEGATIVE); URINE RBC 20 /uL (0-23.9); URINE WBC 65 /uL (0-25.8)
[2022-04-17 10:37] LABS: URINE CRYSTALS NEGATIVE /hpf
== END 2022-04-17 10:39 | disposition home or self-care (01) ==
LOC: JER 07:12 → JERFT 07:12
DX: O23.592 Infection of other part of genital tract in pregnancy, second trimester (principal); B37.31 Acute candidiasis of vulva and vagina; O23.42 Unspecified infection of urinary tract in pregnancy, second trimester; Z3A.19 19 weeks gestation of pregnancy
CPT/HCPCS: 76815-TC; 81003; 87070; 87077; 87086; 87205; 99284-25

== ENCOUNTER 2023-04-14 23:07 | Emergency (ER) | payer OTHER ==
[2023-04-14 23:12] VITALS: BP 151/79; PULSE 84; RESP 16; TEMP 98.7; BMI 46.0
[2023-04-15 00:28] LABS: BASO % 0.5 % (0-2.0); EOS % 3.1 % (0-4.5); HEMATOCRIT 37.9 % (32.4-45.2); HEMOGLOBIN 12.7 GM/dL (10.7-15.3); LYMPH % 21.9 % (8-40); MCH 28.7 pg (25.7-33.7); MCHC 33.5 g/dl (32.0-36.0); MEAN CELL VOLUME 85.8 fl (80-96); MEAN PLT VOLUME 9.8 fl (7.5-11.1); MONO % 6.4 % (3.8-10.2); NEUT % 68.1 % (42.8-82.8); PLATELET COUNT 286 10^3/uL (134-434); RBC 4.41 M/mm3 (3.60-5.2)
[2023-04-15 00:31] LABS: EPI CELLS >36 /uL (0-25.1); HYALINE CASTS 0 /uL (0-3.1); URINE APPEARANCE CLEAR; URINE BACTERIA 295 /uL (0-1359); URINE BILIRUBIN NEGATIVE (NEGATIVE); URINE COLOR YELLOW; URINE GLUCOSE (UA) NEGATIVE (NEGATIVE); URINE KETONE TRACE (NEGATIVE); URINE LEUK ESTERASE NEGATIVE (NEGATIVE); URINE NITRITE NEGATIVE (NEGATIVE); URINE PROTEIN 1+ (NEGATIVE); URINE WBC 25 /uL (0-25.8)
[2023-04-15 00:49] LABS: POTASSIUM 4.1 mmol/L (3.5-5.1)
[2023-04-15 00:50] LABS: ALBUMIN 3.5 g/dl (3.4-5.0); CALCIUM 9.1 mg/dL (8.5-10.1)
[2023-04-15 00:52] LABS: BLOOD UREA NITROGEN 16.1 mg/dL (7-18)
[2023-04-15 00:55] LABS: CREATININE 1.1 mg/dL (0.55-1.3)
[2023-04-15 00:56] LABS: BILIRUBIN,TOTAL 0.7 mg/dL (0.2-1); TOT PROT 7.5 g/dl (6.4-8.2)
[2023-04-15] MEDS ORDERED: ACETAMINOPHEN INJECTION 100 ML IVPB ONE (02:29)
[2023-04-15] MEDS: ACETAMINOPHEN 1000 MG/100 ML BAG IVPB ONE (02:37)
[2023-04-15] MEDS ORDERED: metroNIDAZOLE 250 MG TABLET ONE ×2 (05:00→05:05)
[2023-04-15] MEDS ORDERED: DOXYCYCLINE HYCLATE 100 MG CAPSULE PO ONE (05:00)
[2023-04-15] MEDS: metroNIDAZOLE 250 MG TABLET PO ONE (05:15)
[2023-04-15] MEDS: DOXYCYCLINE HYCLATE 100 MG CAPSULE PO ONE (05:15)
[2023-04-15 08:05] LABS: URINE RBC 23.4 /uL (0-23.9)
== END 2023-04-15 05:20 | disposition home or self-care (01) ==
LOC: JER 23:07
PROC: 3E033NZ Introduction of Analgesics, Hypnotics, Sedatives into Peripheral Vein, Percutaneous Approach (ICD-10-PCS; principal; 2023-04-15)
PROC: 3E02329 Introduction of Other Anti-infective into Muscle, Percutaneous Approach (ICD-10-PCS; 2023-04-15)
DX: R05.9 Cough, unspecified (principal); R09.81 Nasal congestion; R42 Dizziness and giddiness; R06.02 Shortness of breath; N73.9 Female pelvic inflammatory disease, unspecified; Z97.5 Presence of (intrauterine) contraceptive device; Z20.822 Contact with and (suspected) exposure to COVID-19
CPT/HCPCS: 0241U-QW; 36415; 76830-TC; 80053; 81003; 84703; 85025; 87081; 87086; 87491; 87591; 99284-25; J0131

== ENCOUNTER 2023-07-26 03:04 | Emergency (ER) | payer OTHER ==
[2023-07-26 03:14] VITALS: BP 155/89; PULSE 92; RESP 18; TEMP 97.1; BMI 46.0
[2023-07-26] MEDS ORDERED: ACETAMINOPHEN 325 MG TABLET (FP) ONE (03:32)
[2023-07-26] MEDS: ACETAMINOPHEN 325 MG TABLET (FP) PO ONE (03:36)
[2023-07-26] MEDS: ACETAMINOPHEN 500 MG TABLET (FP) PO ONE (03:37)
[2023-07-26] MEDS ORDERED: KETOROLAC TROMETHAMINE 30 MG/1 ML VIAL ONE (05:12)
[2023-07-26] MEDS: KETOROLAC TROMETHAMINE 30 MG/1 ML VIAL IM ONE (05:20)
== END 2023-07-26 05:45 | disposition home or self-care (01) ==
LOC: JER 03:04
PROC: 3E0233Z Introduction of Anti-inflammatory into Muscle, Percutaneous Approach (ICD-10-PCS; principal; 2023-07-26)
DX: R51.9 Headache, unspecified (principal); Y04.0XXA Assault by unarmed brawl or fight, initial encounter
CPT/HCPCS: 70450-TC; 70486-TC; 99284-25

== ENCOUNTER 2023-08-14 09:42 | Observation (INO) | payer OTHER ==
[2023-08-14] MEDS ORDERED: ACETAMINOPHEN 500 MG TABLET (FP) ONE (10:12)
[2023-08-14 10:15] LABS: BASO % 0.5 % (0-2.0); EOS % 2.1 % (0-4.5); HEMATOCRIT 41.8 % (32.4-45.2); HEMOGLOBIN 14.1 GM/dL (10.7-15.3); LYMPH % 15.3 % (8-40); MCH 28.9 pg (25.7-33.7); MCHC 33.7 g/dl (32.0-36.0); MEAN PLT VOLUME 9.8 fl (7.5-11.1); MONO % 4.8 % (3.8-10.2); NEUT % 77.3 % (42.8-82.8); PLATELET COUNT 284 10^3/uL (134-434); RBC 4.87 M/mm3 (3.60-5.2); RDW 13.9 % (11.6-15.6)
[2023-08-14] MEDS: ACETAMINOPHEN 500 MG TABLET (FP) PO ONE (10:17)
[2023-08-14 10:19] LABS: EPI CELLS 13 /uL (0-25.1); HCG,QUALITATIVE URINE Negative; HYALINE CASTS 4 /uL (0-3.1); URINE APPEARANCE TURBID; URINE BACTERIA 591 /uL (0-1359); URINE BILIRUBIN NEGATIVE (NEGATIVE); URINE COLOR DK YELLOW; URINE GLUCOSE (UA) NEGATIVE (NEGATIVE); URINE KETONE NEGATIVE (NEGATIVE); URINE LEUK ESTERASE 3+ (NEGATIVE); URINE NITRITE NEGATIVE (NEGATIVE); URINE PROTEIN 2+ (NEGATIVE); URINE RBC 2097 /uL (0-23.9); URINE WBC 15765 /uL (0-25.8)
[2023-08-14 10:34] LABS: POTASSIUM 4.2 mmol/L (3.5-5.1)
[2023-08-14 10:36] LABS: ALBUMIN 3.9 g/dl (3.4-5.0); BLOOD UREA NITROGEN 9.9 mg/dL (7-18)
[2023-08-14 10:39] LABS: CREATININE 0.8 mg/dL (0.55-1.3)
[2023-08-14 10:41] LABS: BILIRUBIN,TOTAL 1.4 mg/dL (0.2-1); TOT PROT 7.8 g/dl (6.4-8.2)
[2023-08-14] MEDS ORDERED: KETOROLAC TROMETHAMINE 15 MG/ML VIAL ONE (11:40)
[2023-08-14] MEDS ORDERED: CEPHALEXIN MONOHYDRATE 500 MG CAPSULE (UD) ONE (11:40)
[2023-08-14] MEDS: KETOROLAC TROMETHAMINE 15 MG/ML VIAL IVPUSH ONE (11:47)
[2023-08-14] MEDS: CEPHALEXIN MONOHYDRATE 500 MG CAPSULE (UD) PO ONE (11:47)
[2023-08-14] MEDS ORDERED: morphine SULFATE 4 MG/ML VIAL ONE (14:42)
[2023-08-14] MEDS: morphine CARPU-JECT 4 MG/1 ML DISP.SYRIN IVPUSH ONE (14:50)
[2023-08-14] MEDS: SODIUM CHLORIDE 0.9% 500 ML INFUS.BAG IV ONE (14:50)
[2023-08-14] MEDS: LACTATED RINGERS SOLUTION 1,000 ML/1,000 ML INFUS.BAG IV SCH (16:41)
[2023-08-14] MEDS: TAMSULOSIN HCL 0.4 MG CAP PO ONE ×2 (16:41→19:39)
[2023-08-14] MEDS: KETOROLAC TROMETHAMINE 15 MG/ML VIAL IVPUSH PRN (17:58)
[2023-08-14] MEDS: CEFTRIAXONE 1 GM in DEXTROSE 5%-WATER - 50 ML IVPB SCH (18:17)
[2023-08-14 18:43] VITALS: BMI 51.3
[2023-08-15 06:24] VITALS: RESP 18
[2023-08-15] MEDS: ACETAMINOPHEN 500 MG TABLET (FP) PO PRN (08:21)
[2023-08-15 08:35] LABS: POTASSIUM 3.7 mmol/L (3.5-5.1)
[2023-08-15 08:51] LABS: BASO % 0.5 % (0-2.0); EOS % 2.5 % (0-4.5); HEMOGLOBIN 12.3 GM/dL (10.7-15.3); LYMPH % 20.6 % (8-40); MCH 28.9 pg (25.7-33.7); MCHC 33.3 g/dl (32.0-36.0); MEAN CELL VOLUME 86.7 fl (80-96); MEAN PLT VOLUME 9.7 fl (7.5-11.1); MONO % 5.5 % (3.8-10.2); NEUT % 70.9 % (42.8-82.8); PLATELET COUNT 226 10^3/uL (134-434); RBC 4.27 M/mm3 (3.60-5.2); RDW 13.8 % (11.6-15.6); WHITE BLOOD COUNT 6.5 K/mm3 (4.0-10.0)
[2023-08-15 08:52] LABS: CALCIUM 8.4 mg/dL (8.5-10.1)
[2023-08-15 08:53] LABS: BLOOD UREA NITROGEN 8.8 mg/dL (7-18)
[2023-08-15 08:56] LABS: CREATININE 0.7 mg/dL (0.55-1.3)
[2023-08-15] MEDS ORDERED: CEFTRIAXONE 1 GM in DEXTROSE 5%-WATER - 50 ML IVPB SCH (10:00)
[2023-08-15] MEDS: CEFTRIAXONE 1 GM in DEXTROSE 5%-WATER - 50 ML IVPB SCH (10:24)
[2023-08-15 12:11] VITALS: BP 153/82; PULSE 76; TEMP 98.9
== END 2023-08-15 14:35 | disposition home or self-care (01) ==
LOC: JER 09:42 → JERBED 16:10 → J5S 17:46
PROVIDERS: ADMIT Internal Medicine
PROC: 3E033GC Introduction of Other Therapeutic Substance into Peripheral Vein, Percutaneous Approach (ICD-10-PCS; principal; 2023-08-14)
PROC: 3E03329 Introduction of Other Anti-infective into Peripheral Vein, Percutaneous Approach (ICD-10-PCS; 2023-08-14)
DX: N39.0 Urinary tract infection, site not specified (principal); N20.1 Calculus of ureter; N13.30 Unspecified hydronephrosis; I10 Essential (primary) hypertension; Z90.49 Acquired absence of other specified parts of digestive tract; N12 Tubulo-interstitial nephritis, not specified as acute or chronic; J45.909 Unspecified asthma, uncomplicated
CPT/HCPCS: 36415; 74176-TC; 80048; 80053; 81003; 83690; 84703; 85025; 87086; 87186; 96361; 96365; 96366; 96375; 96376; 99285-25; G0378

== ENCOUNTER 2023-12-13 01:22 | Emergency (ER) | payer OTHER ==
[2023-12-13 01:35] VITALS: BP 144/86; PULSE 108; RESP 16; TEMP 98.6; BMI 46.0
[2023-12-13] MEDS ORDERED: ACETAMINOPHEN 325 MG TABLET (FP) ONE (02:12)
[2023-12-13] MEDS: ACETAMINOPHEN 500 MG TABLET (FP) PO ONE (02:16)
== END 2023-12-13 03:10 | disposition home or self-care (01) ==
LOC: JER 01:22
DX: S09.90XA Unspecified injury of head, initial encounter (principal); Y04.0XXA Assault by unarmed brawl or fight, initial encounter
CPT/HCPCS: 99283-25

== ENCOUNTER 2024-01-25 20:26 | Day surgery (SDC) | payer OTHER ==
[2024-01-25 21:50] LABS: BASO % 0.4 % (0-2.0); EOS % 0.4 % (0-4.5); HEMATOCRIT 39.2 % (32.4-45.2); LYMPH % 9.2 % (8-40); MEAN CELL VOLUME 87.8 fl (80-96); MONO % 5.5 % (3.8-10.2); NEUT % 84.5 % (42.8-82.8); PLATELET COUNT 290 10^3/uL (134-434); RBC 4.47 M/mm3 (3.60-5.2); RDW 13.6 % (11.6-15.6)
[2024-01-25 22:22] LABS: POTASSIUM 4.1 mmol/L (3.5-5.1)
[2024-01-25 22:23] LABS: CALCIUM 8.9 mg/dL (8.5-10.1)
[2024-01-25 22:24] LABS: BLOOD UREA NITROGEN 8.7 mg/dL (7-18)
[2024-01-25] MEDS ORDERED: KETOROLAC TROMETHAMINE 30 MG/1 ML VIAL ONE (22:27)
[2024-01-25] MEDS ORDERED: ACETAMINOPHEN INJECTION 100 ML ONE (22:27)
[2024-01-25] MEDS: SODIUM CHLORIDE 0.9% 500 ML INFUS.BAG IV ONE (22:46)
[2024-01-25] MEDS: KETOROLAC TROMETHAMINE 30 MG/1 ML VIAL IVPUSH ONE (22:47)
[2024-01-25] MEDS: ACETAMINOPHEN 1000 MG/100 ML BAG IVPB ONE (22:47)
[2024-01-25 23:00] LABS: URINE APPEARANCE Clear; URINE BILIRUBIN Negative (NEGATIVE); URINE COLOR Yellow; URINE GLUCOSE (UA) Negative (NEGATIVE); URINE KETONE Negative (NEGATIVE); URINE LEUK ESTERASE Negative (NEGATIVE); URINE NITRITE Negative (NEGATIVE); URINE PROTEIN 2+ (NEGATIVE); URINE UROBILINOGEN 4.0 E.U/dl mg/dL (0.2-1.0)
[2024-01-25 23:04] LABS: EPI CELLS 24.9 /uL (0-25.1); HYALINE CASTS 1.09 /uL (0-3.1); URINE BACTERIA 250.4 /uL (0-1359); URINE RBC 88.7 /uL (0-23.9); URINE WBC 66.7 /uL (0-25.8)
[2024-01-26] MEDS ORDERED: AMOX TR/POT CLAV 875MG/125MG TABLETS (FP) PO ONE (01:58)
[2024-01-26] MEDS ORDERED: MORPHINE SULFATE 2 MG/ML SYRINGE ONE (02:02)
[2024-01-26] MEDS ORDERED: CEFTRIAXONE 1 G/50 ML PREMIX 50 ML IVPB ONE (02:02)
[2024-01-26] MEDS: CEFTRIAXONE 1,000 MG in DEXTROSE 5%-WATER - 50 ML IVPB ONE (02:20)
[2024-01-26] MEDS: morphine CARPU-JECT 2 MG/1 ML DISP.SYRIN IVPUSH ONE (02:21)
[2024-01-26] MEDS: SODIUM CHLORIDE 0.9% 500 ML INFUS.BAG IV ONE (02:21)
[2024-01-26] MEDS ORDERED: SODIUM CHLORIDE 1,000 ML IV SCH (04:15)
[2024-01-26 05:04] VITALS: BMI 47.7
[2024-01-26] MEDS ORDERED: LIDOCAINE HCL/PF 2% SDV 5ML VIAL ONE (06:45)
[2024-01-26] MEDS ORDERED: ACETAMINOPHEN INJECTION 100 ML ONE (06:47)
[2024-01-26] MEDS ORDERED: ALBUTEROL SO4 HFA INHALER IH ONE (06:47)
[2024-01-26] MEDS ORDERED: SUCCINYLCHOLINE CHLORIDE 200 MG/10 ML SYRINGE ONE (06:48)
[2024-01-26] MEDS ORDERED: PROPOFOL 20 ML ONE (06:53)
[2024-01-26] MEDS ORDERED: MIDAZOLAM HCL 2 MG/2 ML SINGLE DOSE VIAL ONE (06:53)
[2024-01-26] MEDS ORDERED: ceFAZolin SODIUM 1 GM VIAL ONE (07:40)
[2024-01-26] MEDS: ceFAZolin 2 GRAM PREMIX BAG IVPB ONE (07:40)
[2024-01-26] MEDS ORDERED: ONDANSETRON 4 MG/2 ML VIAL IVPUSH PRN (08:00)
[2024-01-26] MEDS ORDERED: LACTATED RINGERS SOLUTION 1,000 ML IV SCH (08:00)
[2024-01-26] MEDS: SODIUM CHLORIDE 1,000 ML IV SCH (08:11)
[2024-01-26] MEDS ORDERED: TAMSULOSIN HCL 0.4 MG CAP PO SCH (08:30)
[2024-01-26] MEDS: ACETAMINOPHEN 1000 MG/100 ML BAG IVPB ONE (09:23)
[2024-01-26] MEDS ORDERED: FERROUS SO4 325 MG TABLET (FP) PO SCH (10:00)
[2024-01-26] MEDS ORDERED: FAMOTIDINE 40 MG TABLET PO SCH (10:00)
[2024-01-26] MEDS: oxyCODONE HCL 5 MG TABLET PO PRN (11:40)
[2024-01-26] MEDS: FAMOTIDINE 40 MG TABLET PO SCH (11:40)
[2024-01-26] MEDS: FERROUS SO4 325 MG TABLET (FP) PO SCH (11:40)
[2024-01-26 14:53] VITALS: RESP 18
[2024-01-26] MEDS: ROSUVASTATIN CA 20 MG TABLET PO SCH (21:23)
[2024-01-26] MEDS ORDERED: ROSUVASTATIN CA 20 MG TABLET PO SCH (22:00)
[2024-01-27 09:06] LABS: BASO % 0.3 % (0-2.0); EOS % 0.5 % (0-4.5); HEMATOCRIT 35.1 % (32.4-45.2); HEMOGLOBIN 11.4 GM/dL (10.7-15.3); LYMPH % 15.2 % (8-40); MCH 28.7 pg (25.7-33.7); MCHC 32.6 g/dl (32.0-36.0); MEAN CELL VOLUME 88.2 fl (80-96); MEAN PLT VOLUME 9.6 fl (7.5-11.1); MONO % 6.1 % (3.8-10.2); NEUT % 77.9 % (42.8-82.8); PLATELET COUNT 259 10^3/uL (134-434); RBC 3.98 M/mm3 (3.60-5.2); RDW 13.5 % (11.6-15.6); WHITE BLOOD COUNT 11.5 K/mm3 (4.0-10.0)
[2024-01-27] MEDS: CEFTRIAXONE 1 G/50 ML PREMIX 50 ML IVPB SCH (09:26)
[2024-01-27 09:36] LABS: POTASSIUM 3.8 mmol/L (3.5-5.1)
[2024-01-27 09:44] LABS: ALBUMIN 2.9 g/dl (3.4-5.0); BLOOD UREA NITROGEN 8.8 mg/dL (7-18); CALCIUM 8.4 mg/dL (8.5-10.1)
[2024-01-27 09:47] LABS: CREATININE 0.7 mg/dL (0.55-1.3); PHOSPHOROUS 2.2 mg/dL (2.5-4.9)
[2024-01-27 09:48] LABS: BILIRUBIN,TOTAL 0.8 mg/dL (0.2-1); TOT PROT 6.3 g/dl (6.4-8.2)
[2024-01-27] MEDS ORDERED: CEFTRIAXONE 1 G/50 ML PREMIX 50 ML IVPB SCH (10:00)
[2024-01-27] MEDS: KETOROLAC TROMETHAMINE 15 MG/ML VIAL IVPUSH PRN (18:02)
[2024-01-28 09:58] LABS: BASO % 0.4 % (0-2.0); EOS % 0.8 % (0-4.5); HEMOGLOBIN 11.8 GM/dL (10.7-15.3); MCH 29.3 pg (25.7-33.7); MCHC 32.9 g/dl (32.0-36.0); MEAN CELL VOLUME 89.1 fl (80-96); MEAN PLT VOLUME 9.4 fl (7.5-11.1); MONO % 5.8 % (3.8-10.2); PLATELET COUNT 251 10^3/uL (134-434); RBC 4.04 M/mm3 (3.60-5.2); RDW 13.5 % (11.6-15.6); WHITE BLOOD COUNT 8.3 K/mm3 (4.0-10.0)
[2024-01-28 10:24] LABS: POTASSIUM 3.6 mmol/L (3.5-5.1)
[2024-01-28 10:27] LABS: CALCIUM 8.7 mg/dL (8.5-10.1)
[2024-01-28 10:28] LABS: ALBUMIN 3.1 g/dl (3.4-5.0); BLOOD UREA NITROGEN 7.4 mg/dL (7-18); MAGNESIUM 1.9 mg/dL (1.8-2.4)
[2024-01-28 10:31] LABS: CREATININE 0.8 mg/dL (0.55-1.3); PHOSPHOROUS 2.7 mg/dL (2.5-4.9)
[2024-01-28 10:32] LABS: BILIRUBIN,TOTAL 0.9 mg/dL (0.2-1); TOT PROT 6.8 g/dl (6.4-8.2)
[2024-01-28] MEDS: oxyCODONE HCL 5 MG TABLET PO PRN (20:05)
[2024-01-29 09:01] LABS: POTASSIUM 3.9 mmol/L (3.5-5.1)
[2024-01-29 09:03] LABS: BASO % 0.4 % (0-2.0); EOS % 1.6 % (0-4.5); HEMATOCRIT 37.7 % (32.4-45.2); HEMOGLOBIN 12.5 GM/dL (10.7-15.3); LYMPH % 20.5 % (8-40); MCH 29.4 pg (25.7-33.7); MCHC 33.1 g/dl (32.0-36.0); MEAN CELL VOLUME 88.8 fl (80-96); MEAN PLT VOLUME 9.4 fl (7.5-11.1); MONO % 6.4 % (3.8-10.2); NEUT % 71.1 % (42.8-82.8); PLATELET COUNT 280 10^3/uL (134-434); RBC 4.25 M/mm3 (3.60-5.2); RDW 13.6 % (11.6-15.6); WHITE BLOOD COUNT 7.9 K/mm3 (4.0-10.0)
[2024-01-29 09:06] LABS: ALBUMIN 3.2 g/dl (3.4-5.0); BLOOD UREA NITROGEN 9.3 mg/dL (7-18)
[2024-01-29 09:07] LABS: CALCIUM 8.8 mg/dL (8.5-10.1)
[2024-01-29 09:09] LABS: CREATININE 0.8 mg/dL (0.55-1.3)
[2024-01-29 09:11] LABS: BILIRUBIN,TOTAL 1.3 mg/dL (0.2-1)
[2024-01-29] MEDS: POLYETHYLENE GLYCOL (HEALTHYLAX) 3350 17 GM PACKET PO SCH (09:53)
[2024-01-30 06:50] VITALS: BP 148/81; PULSE 65; TEMP 98.2
== END 2024-01-30 17:39 | disposition home or self-care (01) ==
LOC: JER 20:26 → JERBED 01-26 01:45 → UNDOADMIN 01-26 01:45 → JERBED 01-26 04:30 → J5S 01-26 04:30 → JASUSAT 01-26 13:03 → J5S 01-26 13:26 → JASUSAT 01-30 17:39
PROC: 3E033NZ Introduction of Analgesics, Hypnotics, Sedatives into Peripheral Vein, Percutaneous Approach (ICD-10-PCS; 2024-01-26)
PROC: 3E033NZ Introduction of Analgesics, Hypnotics, Sedatives into Peripheral Vein, Percutaneous Approach (ICD-10-PCS; 2024-01-26)
PROC: 3E033NZ Introduction of Analgesics, Hypnotics, Sedatives into Peripheral Vein, Percutaneous Approach (ICD-10-PCS; 2024-01-26)
PROC: 3E033NZ Introduction of Analgesics, Hypnotics, Sedatives into Peripheral Vein, Percutaneous Approach (ICD-10-PCS; 2024-01-26)
PROC: 3E03329 Introduction of Other Anti-infective into Peripheral Vein, Percutaneous Approach (ICD-10-PCS; 2024-01-26)
PROC: 3E033NZ Introduction of Analgesics, Hypnotics, Sedatives into Peripheral Vein, Percutaneous Approach (ICD-10-PCS; 2024-01-26)
PROC: 3E033NZ Introduction of Analgesics, Hypnotics, Sedatives into Peripheral Vein, Percutaneous Approach (ICD-10-PCS; 2024-01-26)
PROC: 3E03329 Introduction of Other Anti-infective into Peripheral Vein, Percutaneous Approach (ICD-10-PCS; 2024-01-26)
PROC: 3E0333Z Introduction of Anti-inflammatory into Peripheral Vein, Percutaneous Approach (ICD-10-PCS; 2024-01-26)
PROC: 3E0333Z Introduction of Anti-inflammatory into Peripheral Vein, Percutaneous Approach (ICD-10-PCS; 2024-01-26)
PROC: 3E033NZ Introduction of Analgesics, Hypnotics, Sedatives into Peripheral Vein, Percutaneous Approach (ICD-10-PCS; 2024-01-26)
PROC: 3E033NZ Introduction of Analgesics, Hypnotics, Sedatives into Peripheral Vein, Percutaneous Approach (ICD-10-PCS; 2024-01-26)
PROC: 3E033NZ Introduction of Analgesics, Hypnotics, Sedatives into Peripheral Vein, Percutaneous Approach (ICD-10-PCS; 2024-01-26)
PROC: 3E033NZ Introduction of Analgesics, Hypnotics, Sedatives into Peripheral Vein, Percutaneous Approach (ICD-10-PCS; principal; 2024-01-26 07:00)
PROC: 3E033NZ Introduction of Analgesics, Hypnotics, Sedatives into Peripheral Vein, Percutaneous Approach (ICD-10-PCS; 2024-01-26 07:00)
DX: N12 Tubulo-interstitial nephritis, not specified as acute or chronic (principal); N20.2 Calculus of kidney with calculus of ureter; R10.9 Unspecified abdominal pain; R50.9 Fever, unspecified; Z20.822 Contact with and (suspected) exposure to COVID-19
CPT/HCPCS: 0241U-QW; 36415; 74018-TC-FY; 74176-TC; 76000-TC-FY; 80048; 80053; 81003; 83605; 83735; 84100; 84703; 85025; 87086; 87186; 93005; 93010; 94760; 97116-GP; 97161-GP; 99285-25; C1758; C2617; J0131

== ENCOUNTER 2024-02-11 04:14 | Day surgery (SDC) | payer OTHER ==
[2024-02-10 15:12] VITALS: BMI 50.6
[2024-02-11] MEDS ORDERED: PROPOFOL 20 ML ONE ×2 (07:23→08:18)
[2024-02-11] MEDS ORDERED: SUCCINYLCHOLINE CHLORIDE 200 MG/10 ML SYRINGE ONE (07:23)
[2024-02-11] MEDS ORDERED: MIDAZOLAM HCL 2 MG/2 ML SINGLE DOSE VIAL ONE ×2 (07:24→07:40)
[2024-02-11] MEDS ORDERED: ONDANSETRON 4 MG/2 ML VIAL ONE (08:15)
[2024-02-11] MEDS ORDERED: DEXAMETHASONE SOD PHOSPHATE 4 MG/1 ML VIAL ONE (08:15)
[2024-02-11] MEDS ORDERED: DEXTROSE 5%-0.45% SALINE 1,000 ML IV SCH (08:45)
[2024-02-11] MEDS ORDERED: ONDANSETRON 4 MG/2 ML VIAL IVPUSH PRN (08:47)
[2024-02-11] MEDS: LACTATED RINGERS SOLUTION 1,000 ML IV SCH (09:03)
[2024-02-11] MEDS ORDERED: oxyCODONE HCL 5 MG TABLET ONE (12:26)
[2024-02-11] MEDS: oxyCODONE HCL 5 MG TABLET PO PRN (12:27)
[2024-02-11 12:34] VITALS: RESP 16
[2024-02-11] MEDS ORDERED: KETOROLAC TROMETHAMINE 30 MG/1 ML VIAL ONE (13:36)
[2024-02-11] MEDS: KETOROLAC TROMETHAMINE 30 MG/1 ML VIAL IVPUSH ONE (13:37)
[2024-02-11 15:49] VITALS: BP 134/72; PULSE 65; TEMP 97.8
== END 2024-02-11 17:46 | disposition home or self-care (01) ==
LOC: JASU-SURG 04:14
PROVIDERS: ATTEND Urology
PROC: BT1FYZZ Fluoroscopy of Left Kidney, Ureter and Bladder using Other Contrast (ICD-10-PCS; principal; 2024-02-11 07:30)
DX: N20.1 Calculus of ureter (principal)
CPT/HCPCS: 76000-TC-FY; 94760; C1758; C2617

== ENCOUNTER 2024-05-29 16:47 | Observation (INO) | payer OTHER ==
[2024-05-29 17:59] LABS: ABSOLUTE IMMATURE GRANULOCYTES 0.04 x10^3/uL (0.0-0.031); BASOPHILS # 0.06 x10^3/uL (0.01-0.08); EOSINOPHIL % 1.9 % (0.7-5.8); HEMATOCRIT 42.4 % (34.1-44.9); HEMOGLOBIN 13.5 g/dL (11.2-15.7); MCHC 31.8 g/dl (32.2-35.5); MEAN CELL VOLUME 90.8 fl (79.4-94.8); MEAN PLT VOLUME 11.1 fl (9.4-12.3); MONOCYTE # 0.59 x10^3/uL (0.24-0.86); MONOCYTE % 5.7 % (4.7-12.5); PLATELET COUNT 309 x10^3/uL (182-369); RDW 13.1 % (12.1-16.8)
[2024-05-29] MEDS ORDERED: ACETAMINOPHEN INJECTION 100 ML ONE (18:05)
[2024-05-29] MEDS: ACETAMINOPHEN 1000 MG/100 ML BAG IVPB ONE (18:28)
[2024-05-29] MEDS: SODIUM CHLORIDE 0.9% 1000 ML INFUS.BAG IV ONE (18:28)
[2024-05-29 18:29] LABS: POTASSIUM 4.2 mmol/L (3.5-5.1)
[2024-05-29] MEDS: ACETAMINOPHEN 500 MG TABLET (FP) PO ONE (18:29)
[2024-05-29 18:31] LABS: BLOOD UREA NITROGEN 7.8 mg/dL (7-18); CALCIUM 9.1 mg/dL (8.5-10.1); MAGNESIUM 2.1 mg/dL (1.8-2.4)
[2024-05-29 18:35] LABS: CREATININE 0.8 mg/dL (0.55-1.3)
[2024-05-29 18:36] LABS: BILIRUBIN,TOTAL 1.3 mg/dL (0.2-1); TOT PROT 7.9 g/dl (6.4-8.2)
[2024-05-29 19:23] LABS: INR 1.06 (0.83-1.09); PROTHROMBIN TIME (PATIENT) 11.7 SEC (9.7-13.0)
[2024-05-29 19:26] LABS: ACTIVATED PTT 29.6 SECONDS (25.2-36.5)
[2024-05-29 19:34] LABS: POTASSIUM 3.6 mmol/L (3.5-5.1)
[2024-05-29 19:35] LABS: CALCIUM 8.7 mg/dL (8.5-10.1)
[2024-05-29 19:36] LABS: BLOOD UREA NITROGEN 8.8 mg/dL (7-18)
[2024-05-29 19:39] LABS: CREATININE 0.7 mg/dL (0.55-1.3)
[2024-05-29] MEDS ORDERED: MORPHINE SULFATE 2 MG/ML SYRINGE ONE (20:01)
[2024-05-29] MEDS: morphine SULFATE 4 MG/ML VIAL IVPUSH ONE ×2 (20:05→22:14)
[2024-05-29 21:46] LABS: URINE APPEARANCE TURBID; URINE BILIRUBIN MODERATE (NEGATIVE); URINE COLOR RED; URINE GLUCOSE (UA) NEGATIVE (NEGATIVE)
[2024-05-29 21:47] LABS: URINE PROTEIN NEGATIVE (NEGATIVE); URINE UROBILINOGEN 0.2 mg/dL (0.2-1.0)
[2024-05-29] MEDS ORDERED: morphine SULFATE 4 MG/ML VIAL ONE (22:10)
[2024-05-30] MEDS ORDERED: MORPHINE SULFATE 2 MG/ML SYRINGE IVPUSH PRN (01:25)
[2024-05-30] MEDS ORDERED: ACETAMINOPHEN 325 MG TABLET (FP) ONE (01:40)
[2024-05-30] MEDS: ACETAMINOPHEN 500 MG TABLET (FP) PO SCH (01:42)
[2024-05-30 02:25] VITALS: BMI 49.6
[2024-05-30 11:16] LABS: HEMATOCRIT 36.8 % (34.1-44.9); HEMOGLOBIN 11.9 g/dL (11.2-15.7); MCHC 32.3 g/dl (32.2-35.5); MEAN CELL VOLUME 90.9 fl (79.4-94.8); PLATELET COUNT 273 x10^3/uL (182-369)
[2024-05-30 11:43] LABS: POTASSIUM 3.2 mmol/L (3.5-5.1)
[2024-05-30 11:44] LABS: CALCIUM 8.8 mg/dL (8.5-10.1)
[2024-05-30 11:45] LABS: ALBUMIN 3.4 g/dl (3.4-5.0); MAGNESIUM 1.9 mg/dL (1.8-2.4)
[2024-05-30 11:48] LABS: CREATININE 0.7 mg/dL (0.55-1.3); PHOSPHOROUS 2.8 mg/dL (2.5-4.9)
[2024-05-30 11:49] LABS: BILIRUBIN,TOTAL 1.5 mg/dL (0.2-1)
[2024-05-30 11:50] LABS: TOT PROT 6.6 g/dl (6.4-8.2)
[2024-05-30 13:00] LABS: BILIRUBIN,DIRECT 0.3 mg/dL (0.0-0.2)
[2024-05-30] MEDS: POTASSIUM CHLORIDE ORAL LIQUID 20 MEQ/15 ML PO ONE (13:36)
[2024-05-31] MEDS: ACETAMINOPHEN 1000 MG/100 ML BAG IVPB PRN (01:02)
[2024-05-31 07:58] LABS: ABSOLUTE IMMATURE GRANULOCYTES 0.02 x10^3/uL (0.0-0.031); BASOPHILS # 0.04 x10^3/uL (0.01-0.08); EOSINOPHIL % 2.8 % (0.7-5.8); EOSINOPHILS # 0.17 x10^3/uL (0.04-0.36); HEMATOCRIT 36.7 % (34.1-44.9); HEMOGLOBIN 11.5 g/dL (11.2-15.7); MCHC 31.3 g/dl (32.2-35.5); MEAN CELL VOLUME 91.5 fl (79.4-94.8); MEAN PLT VOLUME 11.3 fl (9.4-12.3); MONOCYTE # 0.33 x10^3/uL (0.24-0.86); MONOCYTE % 5.4 % (4.7-12.5); PLATELET COUNT 238 x10^3/uL (182-369); RDW 12.9 % (12.1-16.8)
[2024-05-31 08:06] LABS: POTASSIUM 3.6 mmol/L (3.5-5.1)
[2024-05-31 08:08] LABS: CALCIUM 8.5 mg/dL (8.5-10.1)
[2024-05-31 08:09] LABS: BLOOD UREA NITROGEN 6.5 mg/dL (7-18); MAGNESIUM 1.9 mg/dL (1.8-2.4)
[2024-05-31 08:11] LABS: ALBUMIN 3.3 g/dl (3.4-5.0)
[2024-05-31 08:13] LABS: CREATININE 0.7 mg/dL (0.55-1.3)
[2024-05-31 08:14] LABS: BILIRUBIN,TOTAL 1.3 mg/dL (0.2-1); PHOSPHOROUS 3.1 mg/dL (2.5-4.9); TOT PROT 6.4 g/dl (6.4-8.2)
[2024-05-31] MEDS: IBUPROFEN 400 MG TABLET (FP) PO PRN (12:55)
[2024-05-31] MEDS: oxyCODONE HCL 5 MG TABLET PO PRN (13:51)
[2024-05-31] MEDS: ONDANSETRON 4 MG/2 ML VIAL IVPUSH PRN (13:52)
[2024-05-31] MEDS: ACETAMINOPHEN 500 MG TABLET (FP) PO ONE (17:49)
[2024-05-31 20:41] LABS: HEMATOCRIT 34.5 % (34.1-44.9); HEMOGLOBIN 11.4 g/dL (11.2-15.7); MEAN CELL VOLUME 91.8 fl (79.4-94.8); MEAN PLT VOLUME 11.4 fl (9.4-12.3); PLATELET COUNT 257 x10^3/uL (182-369); RDW 12.9 % (12.1-16.8)
[2024-05-31] MEDS ORDERED: ACETAMINOPHEN 325 MG TABLET (FP) PO PRN (20:45)
[2024-06-01] MEDS: oxyCODONE HCL 5 MG TABLET PO PRN (00:10)
[2024-06-01] MEDS: SODIUM CHLORIDE 1,000 ML IV SCH (00:11)
[2024-06-01] MEDS: SODIUM CHLORIDE 1,000 ML IV STA (01:35)
[2024-06-01 19:50] VITALS: BP 124/68; PULSE 73; RESP 17; TEMP 98.8
== END 2024-06-01 20:01 | disposition home or self-care (01) ==
LOC: JER 16:47 → JERBED 23:47 → UNDOADMOB 23:47 → INTOOBSV 23:58 → OBSVTOIN 23:58 → J7W 05-30 02:03 → JERBED 05-30 02:03 → J7W 05-30 11:54 → JERBED 05-30 11:54
PROVIDERS: ADMIT Student in an Organized Health Care Education/Training Program; ATTEND Physician Assistant
PROC: 3E033NZ Introduction of Analgesics, Hypnotics, Sedatives into Peripheral Vein, Percutaneous Approach (ICD-10-PCS; principal; 2024-05-30)
PROC: 3E0337Z Introduction of Electrolytic and Water Balance Substance into Peripheral Vein, Percutaneous Approach (ICD-10-PCS; 2024-05-30)
DX: O02.1 Missed abortion (principal); N93.9 Abnormal uterine and vaginal bleeding, unspecified; I10 Essential (primary) hypertension; E78.5 Hyperlipidemia, unspecified; O09.521 Supervision of elderly multigravida, first trimester; N20.0 Calculus of kidney; Z87.891 Personal history of nicotine dependence; D72.829 Elevated white blood cell count, unspecified; K76.0 Fatty (change of) liver, not elsewhere classified
CPT/HCPCS: 36415; 74177-TC; 76775-TC; 76817-TC; 76856-TC; 80048; 80053; 81003; 82248; 83615; 83735; 84100; 84702; 85025; 85027; 85610; 85730; 86850; 86900; 86901; 87086; 96361; 96374; 96375; 96376; 99285-25; G0378; J0131; Q9967

== ENCOUNTER 2024-06-23 14:20 | Emergency (ER) | payer OTHER ==
[2024-06-23 14:28] VITALS: BMI 49.6
[2024-06-23] MEDS ORDERED: ACETAMINOPHEN INJECTION 100 ML ONE (15:51)
[2024-06-23 15:56] LABS: ABSOLUTE IMMATURE GRANULOCYTES 0.02 x10^3/uL (0.0-0.031); BASOPHILS # 0.04 x10^3/uL (0.01-0.08); EOSINOPHIL % 2.6 % (0.7-5.8); EOSINOPHILS # 0.17 x10^3/uL (0.04-0.36); HEMATOCRIT 35.8 % (34.1-44.9); HEMOGLOBIN 11.5 g/dL (11.2-15.7); MCHC 32.1 g/dl (32.2-35.5); MEAN CELL VOLUME 90.4 fl (79.4-94.8); MEAN PLT VOLUME 11.2 fl (9.4-12.3); MONOCYTE # 0.37 x10^3/uL (0.24-0.86); MONOCYTE % 5.6 % (4.7-12.5); PLATELET COUNT 261 x10^3/uL (182-369); RDW 12.8 % (12.1-16.8)
[2024-06-23] MEDS: ACETAMINOPHEN 1000 MG/100 ML BAG IVPB ONE (15:58)
[2024-06-23 16:09] LABS: EPI CELLS 9 /uL (0-25.1); HYALINE CASTS 1 /uL (0-3.1); INR 1.05 (0.83-1.09); PH,URINE 5.5 (5.0-8.0); PROTHROMBIN TIME (PATIENT) 11.5 SEC (9.7-13.0); URINE APPEARANCE CLEAR; URINE BACTERIA 94 /uL (0-1359); URINE BILIRUBIN NEGATIVE (NEGATIVE); URINE COLOR YELLOW; URINE GLUCOSE (UA) NEGATIVE (NEGATIVE); URINE KETONE TRACE (NEGATIVE); URINE LEUK ESTERASE NEGATIVE (NEGATIVE); URINE NITRITE NEGATIVE (NEGATIVE); URINE PROTEIN 1+ (NEGATIVE); URINE RBC 6 /uL (0-23.9); URINE WBC 19 /uL (0-25.8)
[2024-06-23 16:11] LABS: ACTIVATED PTT 32.1 SECONDS (25.2-36.5)
[2024-06-23 16:12] LABS: POTASSIUM 3.8 mmol/L (3.5-5.1)
[2024-06-23 16:14] LABS: ALBUMIN 3.7 g/dl (3.4-5.0); BLOOD UREA NITROGEN 11.4 mg/dL (7-18); CALCIUM 9.4 mg/dL (8.5-10.1)
[2024-06-23 16:17] LABS: CREATININE 0.9 mg/dL (0.55-1.3)
[2024-06-23 16:19] LABS: BILIRUBIN,TOTAL 1.3 mg/dL (0.2-1); TOT PROT 7.2 g/dl (6.4-8.2)
[2024-06-23 17:55] VITALS: BP 137/80; PULSE 70; RESP 18; TEMP 98.5
== END 2024-06-23 18:06 | disposition home or self-care (01) ==
LOC: JER 14:20
PROC: 3E033NZ Introduction of Analgesics, Hypnotics, Sedatives into Peripheral Vein, Percutaneous Approach (ICD-10-PCS; principal; 2024-06-23)
DX: K64.8 Other hemorrhoids (principal); R42 Dizziness and giddiness; K62.5 Hemorrhage of anus and rectum; R35.0 Frequency of micturition; R30.0 Dysuria; R10.12 Left upper quadrant pain
CPT/HCPCS: 36415; 80053; 81003; 83690; 84703; 85025; 85610; 85730; 86850; 86900; 86901; 87086; 93005; 93010; 99284-25; J0131

== ENCOUNTER 2024-08-10 21:03 | Emergency (ER) | payer OTHER ==
[2024-08-10 21:11] VITALS: BP 121/82; PULSE 79; RESP 20; TEMP 99; BMI 46.0
[2024-08-10] MEDS ORDERED: ALBUTEROL SO4 2.5/IPRATROPIUM 0.5 INH SOL 3 ML VIAL.NEB. NEB ONE (22:26)
[2024-08-10] MEDS: ALBUTEROL SO4 2.5/IPRATROPIUM 0.5 INH SOL 3 ML VIAL.NEB. NEB ONE (22:29)
== END 2024-08-10 23:03 | disposition home or self-care (01) ==
LOC: JERFT 21:03
PROC: 3E0F7GC Introduction of Other Therapeutic Substance into Respiratory Tract, Via Natural or Artificial Opening (ICD-10-PCS; principal; 2024-08-10)
DX: R05.9 Cough, unspecified (principal); R07.89 Other chest pain; R06.00 Dyspnea, unspecified
CPT/HCPCS: 71046-TC-FY; 84703; 93005; 93010; 99285-25

== ENCOUNTER 2024-10-23 01:39 | Emergency (ER) | payer OTHER ==
[2024-10-23 01:45] VITALS: RESP 18; TEMP 98.1; BMI 47.8
[2024-10-23] MEDS ORDERED: ACETAMINOPHEN INJECTION 100 ML ONE (03:01)
[2024-10-23] MEDS: ACETAMINOPHEN 1000 MG/100 ML BAG IVPB ONE (03:15)
[2024-10-23] MEDS ORDERED: ONDANSETRON 4 MG/2 ML VIAL ONE ×2 (03:18→11:41)
[2024-10-23] MEDS ORDERED: FAMOTIDINE 20 MG/50 ML IVPB 20 MG/50 ML MG IVPB ONE (03:18)
[2024-10-23] MEDS ORDERED: MAG HYDROX/AL HYDROX/SIMETH 30 ML UNIT-DOSE CUP ONE (03:18)
[2024-10-23] MEDS: FAMOTIDINE 20 MG/50 ML IVPB 20 MG/50 ML MG IVPB ONE (03:25)
[2024-10-23] MEDS: MAG HYDROX/AL HYDROX/SIMETH 30 ML UNIT-DOSE CUP PO ONE (03:25)
[2024-10-23] MEDS: ONDANSETRON 4 MG/2 ML VIAL IVPUSH ONE ×2 (03:26→11:45)
[2024-10-23] MEDS: LACTATED RINGERS SOLUTION 1000 ML INFUS.BAG IV ONE (03:37)
[2024-10-23 03:44] LABS: ABSOLUTE IMMATURE GRANULOCYTES 0.03 x10^3/uL (0.0-0.031); BASOPHILS # 0.05 x10^3/uL (0.01-0.08); EOSINOPHIL % 2.0 % (0.7-5.8); EOSINOPHILS # 0.17 x10^3/uL (0.04-0.36); MCHC 30.9 g/dl (32.2-35.5); MEAN CELL VOLUME 86.9 fl (79.4-94.8); MEAN PLT VOLUME 11.7 fl (9.4-12.3); MONOCYTE # 0.53 x10^3/uL (0.24-0.86); MONOCYTE % 6.2 % (4.7-12.5); RDW 14.4 % (12.1-16.8)
[2024-10-23 04:04] LABS: GLUCOSE,RANDOM 111.0 mg/dL (74-106); TOT PROT 7.2 g/dl (6.4-8.2)
[2024-10-23 04:05] LABS: CO2 26.0 mmol/L (21-32)
[2024-10-23 04:07] LABS: ALK PHOS 101.0 U/L (40-150)
[2024-10-23] MEDS: morphine CARPU-JECT 4 MG/1 ML DISP.SYRIN IVPUSH ONE ×2 (04:07→06:41)
[2024-10-23 04:09] LABS: SGPT/ALT 26.0 U/L (0-55)
[2024-10-23 04:10] LABS: CREATININE 1.12 mg/dL (0.55-1.3); SGOT/AST 24.0 U/L (5-34)
[2024-10-23 04:30] LABS: HCV DIAGNOSTIC IN-HOUSE W/RFLX NON-REACTIVE (NONREACTIVE); HIV INTERPRETATION NEGATIVE (NEGATIVE)
[2024-10-23 07:09] VITALS: BP 145/82; PULSE 74
[2024-10-23 09:05] LABS: EPI CELLS >36 /uL (0-25.1); HYALINE CASTS 4 /uL (0-3.1); URINE APPEARANCE TURBID; URINE BACTERIA 17 /uL (0-1359); URINE BILIRUBIN 1+ (NEGATIVE); URINE COLOR RED; URINE GLUCOSE (UA) NEGATIVE (NEGATIVE); URINE KETONE NEGATIVE (NEGATIVE); URINE LEUK ESTERASE 1+ (NEGATIVE); URINE NITRITE NEGATIVE (NEGATIVE); URINE PROTEIN 2+ (NEGATIVE); URINE UROBILINOGEN 0.2 mg/dL (0.2-1.0); URINE WBC 436 /uL (0-25.8)
[2024-10-23] MEDS ORDERED: HALOPERIDOL LACTATE 5 MG/ML IM ONE (09:56)
[2024-10-23] MEDS ORDERED: KETOROLAC TROMETHAMINE 15 MG/ML VIAL ONE (11:26)
[2024-10-23] MEDS: KETOROLAC TROMETHAMINE 15 MG/ML VIAL IVPUSH ONE (11:31)
== END 2024-10-23 13:17 | disposition home or self-care (01) ==
LOC: JER 01:39
PROC: 3E033GC Introduction of Other Therapeutic Substance into Peripheral Vein, Percutaneous Approach (ICD-10-PCS; principal; 2024-10-23)
PROC: 3E033NZ Introduction of Analgesics, Hypnotics, Sedatives into Peripheral Vein, Percutaneous Approach (ICD-10-PCS; 2024-10-23)
PROC: 3E0333Z Introduction of Anti-inflammatory into Peripheral Vein, Percutaneous Approach (ICD-10-PCS; 2024-10-23)
PROC: 3E033NZ Introduction of Analgesics, Hypnotics, Sedatives into Peripheral Vein, Percutaneous Approach (ICD-10-PCS; 2024-10-23)
PROC: 3E033GC Introduction of Other Therapeutic Substance into Peripheral Vein, Percutaneous Approach (ICD-10-PCS; 2024-10-23)
PROC: 3E033NZ Introduction of Analgesics, Hypnotics, Sedatives into Peripheral Vein, Percutaneous Approach (ICD-10-PCS; 2024-10-23)
PROC: 3E033GC Introduction of Other Therapeutic Substance into Peripheral Vein, Percutaneous Approach (ICD-10-PCS; 2024-10-23)
DX: R10.32 Left lower quadrant pain (principal); R14.0 Abdominal distension (gaseous); R11.0 Nausea
CPT/HCPCS: 36415; 74177-TC; 76830-TC; 80053; 81003; 84703; 85025; 86803; 87086; 87389; 99285-25